=== PATIENT | male | born 1970 | race Caucasian/White ===

== ENCOUNTER 2021-01-27 12:52 | Emergency (ER) | payer BC, SELFPAY ==
[2021-01-27 12:55] VITALS: BP 159/103; PULSE 70; RESP 18; TEMP 36.7; O2SAT 98; BMI 41.0
--- NOTE | 2021-01-27 13:06 | ED_ITS ---
HPI - Weakness General: Chief complaint: Weakness Stated complaint: fatigue and dizziness Time Seen by Provider: 01/27/21 13:05 History of Present Illness: HPI Narrative: 50-year-old male presents emergency room complaining of generally feeling weak and sore the last several days. He has also some left lower leg redness with a little bit of drainage. He denies any fever sweats or chills. MD Complaint: generalized weakness Onset (ago): day(s) Duration: constant Location: generalized Migration: none Severity: mild Relieving factors: none Exacerbating factors: none Associated symptoms: Denies chest pain, chills, confusion, melena, decreased appetite, diaphoresis, dysuria, easy bruising, fever(s), headache(s), myalgias, nausea, rash, short of breath, syncope or vomiting Review of Systems Const: Denies: fever(s), chills or diaphoresis ENMT: Denies: throat pain, ear or mastoid pain, nasal discharge or nasal congestion Card: Denies: chest pain or syncope Resp: Denies: dyspnea, productive cough or non-productive cough GI: Denies: nausea, vomiting or melena : Denies: dysuria Skin/Breast: Denies: rash or pruritus Neuro: Denies: headache(s) or confusion Juan Manuel/Lymph: Denies: easy bruising Physical Exam Const: COMMON NORMALS: no acute distress GENERAL APPEARANCE: cooperative and comfortable ORIENTATION/CONSCIOUSNESS: Yes awake, Yes oriented to person, Yes oriented to place and Yes oriented to time HENMT: COMMON NORMALS: normocephalic, atraumatic and hearing grossly normal bilaterally HEAD & SCALP: normocephalic and atraumatic Neck/C-Spine: COMMON NORMALS: no JVD Resp: COMMON NORMALS: normal respiratory effort, No retractions, No use of accessory muscles and clear to auscultation bilaterally AUSCULTATION: clear to auscultation bilaterally Cardio: COMMON NORMALS: no JVD, regular rate, regular rhythm and No murmurs present (Cardio) RATE: regular rate RHYTHM: regular rhythm GI: COMMON NORMALS: Soft to palpation and No hepatosplenomegaly present AUSCULTATION: Yes normoactive bowel sounds PALPATION: Yes Soft to palpation, No Tenderness to palpation present (GI), No Guarding due to palpation present (GI) and Yes No hepatosplenomegaly present Extremity: NARRATIVE EXTREMITY EXAM: Erythema of the distal left leg anteriorly and medially there is some bullous formation no active drainage no fluctuance no open wounds no purulent drainage. Mildly tender lymphadenopathy in the left inguinal region Neuro: SENSORIUM/ORIENTATION: Yes oriented to person, Yes oriented to place and Yes oriented to time Skin: COMMON NORMALS: no rashes or lesions noted GENERAL SKIN EXAM: no rashes or lesions noted Course Vital Signs: Vital signs: Vital Signs Temperature 98.1 F 01/27/21 12:55 Pulse Rate 70 01/27/21 12:55 Respiratory Rate 18 01/27/21 12:55 Blood Pressure 159/103 01/27/21 12:55 Pulse Oximetry 98 01/27/21 12:55 MDM - Weakness MDM Narrative: Medical decision making narrative: Reviewed labs and imaging. We will go ahead and start on Bactrim DS 1 p.o. twice daily elevate leg mild moist heat 2-3 times a day return if has problems. Lab Data: Labs: Lab Results 01/27/21 01/27/21 01/27/21 Range/Units 13:50 13:50 14:15 WBC 7.6 (4.0-10.0) 10^3/ uL RBC 5.07 (4.1-5.3) 10^6/u L Hgb 15.7 (11.7-16.6) g/dL Hct 45.9 (42.0-52.0) % MCV 90.5 (80-94) fl MCH 31.0 (28.0-34.0) pg MCHC 34.2 (30.0-36.0) g/dL RDW 12.8 (12.1-15.1) % Plt Count 191 (130-400) 10^3/c mm MPV 11.1 H (7.4-10.4) fL Neut % (Auto) 64.7 % Lymph % (Auto) 22.1 % [place] % (Auto) 10.7 % Eos % (Auto) 0.9 % Baso % (Auto) 0.9 % Neut # (Auto) 4.93 (1.8-7.7) 10^3/u L Lymph # (Auto) 1.7 (0.8-4.8) 10^3/u L [place] # (Auto) 0.8 (0.2-0.9) 10^3/u L Eos # (Auto) 0.1 (0.0-0.8) 10^3/u L Baso # (Auto) 0.1 (0.0-0.1) 10^3/u L Nucleated RBC % (a uto) 0 % Nucleated RBCs # 0.0 /100WBC Sodium 136 (136-145) mmol/L Potassium 3.7 (3.5-5.1) mmol/L Chloride 98 (98-107) mmol/L Carbon Dioxide 25 (22-29) mmol/L Anion Gap 16.7 (5-19) BUN 10 (6-20) mg/dL Creatinine 0.6 L (0.7-1.2) mg/dL GFR Calculation 142.6 H (90-130) mL/min Glucose 88 (65-115) mg/dL Calculated Osmolal ity 280 L (285-295) mOsm/k g Calcium 8.9 (8.5-10.5) mg/dL Total Bilirubin 0.5 (0.15-1.2) mg/dL AST 21 (0-40) U/L ALT 35 (0-41) U/L Alkaline Phosphata se 99 (40-130) IU/L Creatine Kinase 54 (39-308) U/L Total Protein 7.8 (6.6-8.7) g/dL Albumin 4.4 (3.5-5.2) g/dL Globulin 3.4 (1.3-4.6) g/dL Lipase 55 (13-60) U/L Urine Color Yellow (Yellow) Urine Appearance Clear (CLEAR) Urine pH 6 (5-7) Ur Specific Gravit y 1.010 (1.005-1.030) Urine Protein Neg (Negative) Urine Glucose (UA) Norm (Normal) Urine Ketones Negative (Negative) Urine Blood Neg (Negative) Urine Nitrate Negative (Negative) Urine Bilirubin Neg (Negative) Urine Urobilinogen Neg (Negative) mg/dL Ur Leukocyte Josette ase Negative (Negative) Discharge Plan Discharge Patient Disposition: Home Clinical Impression: Cellulitis and abscess of left leg Condition: Stable Prescriptions: New Bactrim DS 800-160 mg tablet 1 tab PO BID 10 Days Qty: 20 RF: 0 No Action atorvastatin 40 mg tablet 20 mg PO DAILY RF: 0 clopidogrel 75 mg tablet 75 mg PO DAILY RF: 0 Aspir-81 81 mg Tablet,Delayed Release (Dr/Ec) 81 mg PO DAILY RF: 0 potassium 99 mg Tablet 198 mg PO DAILY RF: 0 metoprolol tartrate 50 mg tablet 50 mg PO BID RF: 0 omeprazole 20 mg capsule,delayed release(DR/EC) 20 mg PO BID RF: 0 furosemide 20 mg tablet 20 mg PO DAILY RF: 0 sertraline 50 mg tablet 50 mg PO DAILY RF: 0 Discharge Orders: Discharge ED (Routine); Ordered 01/27/21 Ordered By: Brock Sherwood Referrals: Anushka Ortez NP [Primary Care Provider] - Patient Instructions: Opioid Safety Activity Restrictions/Additional Instructions: Elevate leg is much as possible moist heat 3-4 times a day. Recheck with your primary care doctor within the next 3 to 5 days return to the ER if you have worsening symptoms. Coding Level of Care Code ED Green House Manager for Peter Saldivar Exam Detailed
--- NOTE | 2021-01-27 13:09 | XR_ITS ---
WS: [id number] Portable AP upright chest, 01/27/2021 Clinical Data: dyspnea/cough Comparison: Portable chest, 10/19/2015. Findings: No nodules, masses or effusions are seen. The heart is moderately enlarged. The pulmonary v ascularity is not increased. No pneumonia or pneumothorax is seen. Line and sternotomy sutures are pr esent. XR/XR chest 1V portable [id number] Impression: Cardiomegaly.
--- NOTE | 2021-01-27 13:09 | ECG_ITS ---
[facility] Test Date: 2021-01-27 Pat Name: Earl Mckeon Department: Room: Gender: Male Land Developer: : 1970 Requested By: Brock Cullen Order Number: [id number] Heath MD: Pita Moore M.D. Measurements Intervals [place] Rate: 69 P: 27 VT: 171 QRS: 28 QRSD: 120 T: 120 QT: 415 QTc: 446 Interpretive Statements SINUS RHYTHM INFERIOR MYOCARDIAL INFARCTION [40+ ms Q WAVE AND/OR ST/T ABNORMALITY IN II/aVF], PROBABLY OLD Compared to ECG 10/19/2015 09:47:35 No significant changes Electronically Signed On 01-29-2021 18:20:16 CDT by Pita Moore M.D. [email or web address]
[2021-01-27 14:01] LABS: Basophils # 0.1 10^3/uL (0.0-0.1); Basophils % 0.9 %; Eosinophils # 0.1 10^3/uL (0.0-0.8); Eosinophils % 0.9 %; Hematocrit 45.9 % (42.0-52.0); Hemoglobin 15.7 g/dL (11.7-16.6); Lymphocytes # 1.7 10^3/uL (0.8-4.8); Lymphocytes % 22.1 %; Mean Corpuscular HGB Conc 34.2 g/dL (30.0-36.0); Mean Corpuscular Volume 90.5 fl (80-94); Mean Platelet Volume 11.1 fL (7.4-10.4); Monocytes # 0.8 10^3/uL (0.2-0.9); Monocytes % 10.7 %; Neutrophils # 4.93 10^3/uL (1.8-7.7); Neutrophils % 64.7 %; Nucleated Red Blood Cells % 0 %; Platelet Count 191 10^3/cmm (130-400); Red Blood Count 5.07 10^6/uL (4.1-5.3); Red Cell Distribution Width 12.8 % (12.1-15.1); White Blood Count 7.6 10^3/uL (4.0-10.0)
[2021-01-27 14:26] LABS: Add Urine Microscopic? NO; Charge for UA Resulting for Rev
[2021-01-27 14:30] LABS: Bilirubin Urine Neg (Negative); Blood Urine Neg (Negative); Glucose Urine UA Norm (Normal); Ketones Urine Negative (Negative); Leukocyte Esterase Urine Negative (Negative); Nitrate Urine Negative (Negative); Protein Urine Neg (Negative); Urine Appearance Clear (CLEAR); Urine Color Yellow (Yellow); Urobilinogen Urine Neg (Negative); pH Urine 6 (5-7)
[2021-01-27 15:06] LABS: Alanine Aminotransferase 35 U/L (0-41); Albumin Level 4.4 g/dL (3.5-5.2); Alkaline Phosphatase 99 IU/L (40-130); Anion Gap 16.7 (5-19); Aspartate Amino Transferase 21 U/L (0-40); Blood Urea Nitrogen 10 mg/dL (6-20); Calcium 8.9 mg/dL (8.5-10.5); Carbon Dioxide 25 mmol/L (22-29); Chloride 98 mmol/L (98-107); Creatine Phosphokinase 54 U/L (39-308); Globulin 3.4 g/dL (1.3-4.6); Glomerular Filtration Rate 142.6 mL/min (90-130); Glucose 88 mg/dL (65-115); Lipase 55 U/L (13-60); Osmolality Calculated 280 mOsm/kg (285-295); Potassium 3.7 mmol/L (3.5-5.1); Sodium 136 mmol/L (136-145); Total Bilirubin 0.5 mg/dL (0.15-1.2); Total Protein 7.8 g/dL (6.6-8.7)
== END 2021-01-27 16:03 | disposition home or self-care (01) ==
PROVIDERS: Emergency Provider Family Medicine; PCP Nurse Practitioner Family
DX: L03.116 Cellulitis of left lower limb (principal); L02.416 Cutaneous abscess of left lower limb; Z79.02 Long term (current) use of antithrombotics/antiplatelets; Z79.82 Long term (current) use of aspirin
CPT/HCPCS: 71045; 80053; 81003; 82550; 83690; 85025; 93005; 99283

== ENCOUNTER → 2021-08-12 10:45 | Outpatient (BNVA) | payer BC, SELFPAY | PROVIDERS: PCP Nurse Practitioner Family; Visit Provider Internal Medicine | DX: Z20.822 Contact with and (suspected) exposure to COVID-19 (principal); Z01.812 Encounter for preprocedural laboratory examination; I10 Essential (primary) hypertension | CPT/HCPCS: 80048; 87635 ==

== ENCOUNTER 2021-08-16 07:58 | Observation (INO) | payer BC, SELFPAY ==
[2021-08-12 10:38] LABS: Basophils # 0.1 10^3/uL (0.0-0.1); Basophils % 0.8 %; Eosinophils # 0.1 10^3/uL (0.0-0.8); Hematocrit 46.7 % (42.0-52.0); Hemoglobin 15.8 g/dL (11.7-16.6); Lymphocytes # 1.6 10^3/uL (0.8-4.8); Lymphocytes % 21.5 %; Mean Corpuscular HGB Conc 33.8 g/dL (30.0-36.0); Mean Corpuscular Hemoglobin 30.6 pg (28.0-34.0); Mean Corpuscular Volume 90.3 fl (80-94); Monocytes # 0.5 10^3/uL (0.2-0.9); Monocytes % 6.8 %; Neutrophils # 5.08 10^3/uL (1.8-7.7); Neutrophils % 69.2 %; Nucleated Red Blood Cells % 0 %; Platelet Count 191 10^3/cmm (130-400); Red Blood Count 5.17 10^6/uL (4.1-5.3); Red Cell Distribution Width 12.7 % (12.1-15.1); White Blood Count 7.3 10^3/uL (4.0-10.0)
[2021-08-12 10:49] LABS: INR 0.95 (0.83-1.21)
[2021-08-16] VITALS (29 sets, daily range): BP systolic 105–146; BP diastolic 65–101; PULSE 58–73; RESP 5–32; TEMP 36.3–36.8; O2SAT 95–98; BMI 50.4
--- NOTE | 2021-08-16 06:00 | XACV_ITS ---
Exam Room: [facility] Ht: 178 cm Wt: 133 kg BSA: 2.63 m2 Gender: Male : 1970 Any Known Allergies: No known allergies Exam Priority: Routine Procedure(s): Procedure Description: Diagnostic procedure Procedure Description: Aortogram Procedure Description: Venous Graft Catheterization Procedure Description: RAMIREZ Graft Catheterization Procedure Description: Coronary Angiography Diagnostic Cath Status: Elective Diagnostic Findings * Left main:Patent LAD: Has patent stents. No significant disease. Left circumflex artery: Has diffuse mild luminal irregularities. No significant stenosis RCA: Patent. Prior stents are patent. SVG to RCA: Occluded SVG to OM: Occluded RAMIREZ to LAD: Patent however is atretic in the distal segment.. * Coronary angiography shows right dominance. Conclusions 1. Left main:Patent LAD: Has patent stents. No significant disease. Left circumflex artery: Has diffuse mild luminal irregularities. No significant stenosis RCA: Patent. Prior stents are patent. SVG to RCA: Occluded SVG to OM: Occluded RAMIREZ to LAD: Patent however is atretic in the distal segment.. 2. Patient has prior CABG. Recommendations * Aggressive risk factor modification. * Outpatient cardiology follow up in 4 weeks. Interventional RX Recommendation: medical therapy and/or counseling Diagnostic RX Recommendation: medical therapy and/or counseling Pressures Phase:Rest AO : 113 / 72 ( 89 ) @ 8:00:00 AM 100 / 68 ( 80 ) @ 8:30:00 AM Clinical Evaluation EBL: 5mL-10mL Procedural Details Procedure Consent Obtained. Pre-Procedure Time Out. Identified patient by full name and date of as verbalized by the patient/guarantor. Does the consent match the physician's order: Yes. Accurate & Complete Informed Consent: Yes. Inpatient/Outpatient History & Physical on Chart: Yes. If H&P is completed, is and addenduem needed: No; If yes, is the addendum complete: N/A. Visualize and Verify Site with Patient/Guarantor: N/A. Relevant Radiology Images available: N/A. Pre-op teaching completed and patient verbalized understanding. The risks, benefits, and alternatives of sedation and/or procedure were discussed by physician. The patient agrees to continue. Procedure started. [facility] Clinical Fraility Score: 3: Managing Well. Administrative Services Specialist Indications: Worsening Angina. Chest Pain Symptom Assessment: Typical Angina Symptoms. Cardiovascular Instability: No. Correct patient, site and procedure confirmed by cath team. PERRLA. Strong, equal hand unemployment insurance director bilaterally. Lungs clear x 5 lobes. IV Site on Arrival: 20 gauge in the left anticubital. IV Fluids: 0.9% NaCl at KVO. 0 mL infused prior to electrical laboratory technician. Pre Procedural Pulses: bilateral dorsalis pedis was Doppled. Pre Procedural Pulses: bilateral posterior tibial was Doppled. Pre Procedural Pulses: bilateral radial was 2+. Oxygen started at 2liters/min via nasal canula. bilateral groins was prepped with chloroprep then draped in the usual sterile fashion. Baseline sample Acquired. HR: 64 BPM. Physician arrived. Equipment: 6F - Femoral. Cardiac Cath Pack. ACIST Manifold Kit Model BT 2000. Heparinized Saline (2 units/mL), 1000 mL bag. Kit, Micropuncture. Physician scrubbed in. Immediate Pre-Procedure Time Out. Correct Patient: Yes; Correct Procedure: Yes; Correct Site: Yes; Correct Patient Position: Yes; Correct Supplies: Yes; Dried Flammable Prep: Yes; Blood Products Available: N/A;. Lidocaine 1% infiltrated to the right groin. Arterial access obtained with micropuncture set. A 5 [place] JL4 catheter in over wire. Multiple views taken of left coronary artery. Catheter out. A 5 [place] JR4 catheter in over wire. Multiple views taken of right coronary artery. Catheter out. A 5 [place] IM catheter in over wire. RAMIREZ to LAD visualized. Catheter out. A 5 [place] JR4 catheter in over wire. Catheter out. A 5 [place] AL1 catheter in over wire. Catheter out. A 5 [place] Angled Pig catheter in over wire. Aortogram performed in RAMESH @ 10 mL/second for a total of 30 mL. Catheter out. A 5 [place] JR4 catheter in over wire. Catheter out. SVG to circ occluded. RCA known occluded. A Right femoral angiogram was performed to determine safe placement of closure device. Lidocaine 1% infiltrated to the right groin. A Angio-Seal VIP (St. Aric) was successful obtaining hemostatsis at the Right Femoral artery insertion site. Angioseal placed without complications. No signs or symptoms of hematoma noted. Sterile dressing applied per usual sterile fashion. Post Procedure: Pulses reassessed and unchanged. PERRLA. Strong, equal hand unemployment insurance director bilaterally. No VTE prophylaxis required. Medication's Wasted: Lidocaine 1% = 10 mL. Medication's Wasted: Nitro = 50 mg. Medication's Wasted: Heparin = 1000 units. Medication's Wasted: Other = versed 1 mg. Medication's Wasted: Other = fentanyl 50 mcg. Total IV fluids: 40 mL. Contrast type used: Visipaque 320 mgI/mL, 500 mL bottle. Post-op diagnosis: severe multi vessel CAD. Complications: none. Estimated blood loss: 5mL-10mL. Responsiveness - Normal response to verbal stimuli; alert and oriented, PERRLA. Airway - Unaffected, no intervention required; spontaneous ventilation. Circulation: W/N/L, pulses unchanged. Nausea/Vomiting: No. Procedure completed. Patient transferred by bed to 1st floor. Vital chart was stopped. Access Site Site: Right Femoral artery Sheath Size: 6 Fr Hemostasis Method: Angio-Seal VIP (St. Aric) Hemostasis Success: Successful Procedure Medications Start: 7:46 AM Stop: 7:46 AM Medication: Versed Amount: 1 mg Route: I.V. Start: 7:46 AM Stop: 7:46 AM Medication: Fentanyl Amount: 50 mcg Route: I.V. Start: 7:52 AM Stop: 7:52 AM Medication: Versed Amount: 1 mg Route: I.V. Start: 7:52 AM Stop: 7:52 AM Medication: Fentanyl Amount: 50 mcg Route: I.V. I, the attending physician, have reviewed and verified all procedure medications. Yes, all medications given per verbal order History/Risk Factors Hypertension: Yes Dyslipidemia: Yes Peripheral Arterial Disease (PAD): No Myocardial Infarction (OR): No Obesity: Yes Renal Disease: No Tobacco Use: Former Prior Interventions PCI: Yes CABG: Yes Valve Surgery: No Date of PCI: 06/30/2014 Report Signatures Finalized by Albino Cespedes MD on 08/29/2021 07:26 PM
[2021-08-16] MEDS: diphenhydrAMINE 50 mg Capsule PO (06:30)
--- NOTE | 2021-08-16 07:45 | W.PM.OPSUD ---
Surgery/Procedure H&P Update DATE OF PROCEDURE: August 16, 2021 DATE H&P PERFORMED: 07/26/21 H&P UPDATE INFORMATION: I have reviewed H&P completed within last 30 days, I have examined patient prior to procedure and No changes to prior documentation PREOP DIAGNOSIS: Worsening angina PRIMARY INDICATION FOR PROCEDURE: Worsening angina PLANNED PROCEDURE: Operation Date: 08/16/21 07:00 Proposed Procedures p Cardiac Catheterization(Left) - Albino Cespedes M.D Possible percutaneous coronary intervention PATIENT REASSESSED PRIOR TO SEDATION, WITH NO CHANGE NOTED: Yes PHYSICAL EXAM: alert, oriented x 3, clear to auscultation bilaterally and regular rate & rhythm AIRWAY EVAL/ANESTHESIA PLAN: ASA III, Monitored Anesthesia, Local Anesthesia, Risks, benefits & alternatives of sedation and/or procedure discussed and Patient agrees to continue as planned
[2021-08-16] MEDS: clopidogrel 75 mg Tablet PO (10:28)
[2021-08-16] MEDS: sertraline 50 mg Tablet PO (10:28)
[2021-08-16] MEDS: atorvastatin 40 mg Tablet PO (10:28)
[2021-08-16] MEDS: pantoprazole DR 40 mg Tablet PO (10:28)
[2021-08-16] MEDS: metoprolol tartrate 50 mg Tablet PO (10:30)
--- NOTE | 2021-08-16 11:04 | PC.CHAP ---
Pastoral Care Encounter/Spiritual Assessment Type of Contact [] Declined laser beam trim operator visit [] Patient/Family/Request visit [] Outpatient visit [] Follow-up visit [] Physician referral [] Code/Alert [x] Routine visit [] Staff referral [] Actively dying [] Patient sleeping [x] Family support [] [] Out of room [] Palliative care [] [] Receiving care in room [] Pre-surgical visit [] Trauma [] Long length of stay [] ICU visit [] Other: Relational/Emotional Strength [] Patient feels connected with others/family/visitors/staff [] Distress [] Loneliness/isolation [] Abandonment Spirituality of Patient [] Person of Noemí [] Attends Samaritan of their Noemí [] Believes in Prayer [] Reads Bible or Sabianist materials [] There are Spiritual issues to be addressed Fishing Boat Mate Interventions [x] Prayer [x] Active listening [x] Non-anxious presence [x] Spiritual/emotional support [] Crisis/trauma care [] Spiritual counseling [] Bereavement support [] Provided bereavement packet [] Provided Bible/devotional materials [] Provided toy/stuffed animal, coloring book to patient or family member [] Provided Communion [] Anointing/[place] [] Salvation [x] Completed spiritual assessment [] Other: Impact on Illness or Injury [] Angry [] Fearful [] Anxious [] Often cries [] Exhaustion [] Unable to work [] Unable to attend confucianist [] Unable to walk/stand [] Unable to read [] Unable to drive [] Unable to eat/drink [] Unable to sleep [] Unable to be with family [] Patient intubated [] Other: Summary didnt sleep well... resting Time spent with patient 5 min
--- NOTE | 2021-08-16 12:42 | PC.NURSE ---
Patient ate 100% of lunch fully independent, and drank 120ml of juice.
--- NOTE | 2021-08-16 15:25 | PC.NURSE ---
Discharge Note Patient discharged to home via private vehicle accompanied by spouse. All lines removed. Dressing to right groin over incision site intact, no drainage or hematoma noted. Patient denies pain or discomfort, vitals stable. Discharge instructions reviewed with patient and/or lead generation representative. Patient verbalized understanding of all teaching. Mobile pharmacy medications and/or prescriptions provided. Belongings/home medications returned.
== END 2021-08-16 15:34 | disposition home or self-care (01) ==
LOC: CSU 07:58
PROVIDERS: Admitting Provider Internal Medicine; PCP Nurse Practitioner Family; Visit Provider Internal Medicine
DX: I25.10 Atherosclerotic heart disease of native coronary artery without angina pectoris (principal); I10 Essential (primary) hypertension; E78.5 Hyperlipidemia, unspecified; E66.9 Obesity, unspecified; Z68.43 Body mass index [BMI] 50.0-59.9, adult; Z87.891 Personal history of nicotine dependence; Z95.1 Presence of aortocoronary bypass graft; Z79.82 Long term (current) use of aspirin; Z82.49 Family history of ischemic heart disease and other diseases of the circulatory system; Z82.3 Family history of stroke
CPT/HCPCS: 36415; 85025; 85610; 93455; C1760; C1769; C1887; C1894; G0378; J1644; J2250; J3010; J3490; J7030; Q0163; Q9967

== ENCOUNTER → 2021-08-23 10:38 | Outpatient (BNVA) | payer BC, SELFPAY | PROVIDERS: PCP Nurse Practitioner Family; Visit Provider Nurse Practitioner Family | DX: I10 Essential (primary) hypertension (principal); I25.10 Atherosclerotic heart disease of native coronary artery without angina pectoris | CPT/HCPCS: 80048 ==

== ENCOUNTER 2021-12-27 11:25 | Outpatient (CLI) | payer BC, SELFPAY ==
--- NOTE | 2021-12-27 11:44 | XR_ITS ---
WS: [id number] XR lumbar spine 2-3V* [id number] REASON FOR EXAM: DORSALGIA FINDINGS: Mild rotatory scoliosis convex left. Mild straightening of the normal lordosis. Mild wedge-shaped compression deformities of L1 and L2 which appear chronic with associated moderate osteophyte formation and disc space narrowing. Mild narrowing of the intervertebral disc space at L2-L3 and L5-S1. Large osteophyte of the superior endplate of L3. No significant spondylolisthesis. XR/XR lumbar spine 2-3V* [id number] IMPRESSION: Degenerative disc disease of the lumbar spine with no acute abnormality identif ied.
--- NOTE | 2021-12-27 11:44 | XR_ITS ---
WS: [id number] XR thoracic spine 2V [id number] REASON FOR EXAM: MID BACK PAIN/DORSALGIA FINDINGS: There is no significant dorsal kyphosis or scoliosis. There are chronic appearing endplate compression deformities of T8 and T9 and T12 associated with lar ge osteophytes. No other significant vertebral body abnormality is noted. There is narrowing of the intervertebral disc spaces from T8 to T12. XR/XR thoracic spine 2V [id number] IMPRESSION: Degenerative changes with no acute abnormality identified.
== END 2021-12-27 11:26 | disposition home or self-care (01) ==
PROVIDERS: PCP Nurse Practitioner Family; Visit Provider Nurse Practitioner Family
DX: M51.36 Other intervertebral disc degeneration, lumbar region (principal)
CPT/HCPCS: 72070; 72100

== ENCOUNTER 2022-04-08 05:09 | Emergency (ER) | payer BC, SELFPAY ==
[2022-04-08 05:13] VITALS: PULSE 73; RESP 18; TEMP 36.8; O2SAT 98; BMI 42.5
[2022-04-08 05:18] VITALS: BP 133/79; PULSE 73; RESP 18; TEMP 36.8; O2SAT 98
--- NOTE | 2022-04-08 05:20 | ED_ITS ---
Documented by User: Emmanuelle Scott MD 04/11/22 18:51 HPI - Nausea/Vomiting/Diarrhea General: Chief complaint: Nausea/Vomiting/Diarrhea Stated complaint: ABD Pain\Diahrea\Dehydration Time Seen by Provider: 04/08/22 05:14 Source: patient Mode of arrival: ambulatory Limitations: no limitations History of Present Illness: 52-year-old male states he has had diarrhea over the last week. He states he has multiple watery stools states he has had no worsening improving factors. He denies any fever has had some slight nausea denies any vomiting he has had abdominal cramping he rates it 1 out of 10. He denies fevers. Associated nausea: Yes Associated symtoms: Reports nausea; Denies chest pain, dysuria or headache(s) Review of Systems Const: Denies: fever(s), chills, body aches or change in appetite Eyes: Denies: blurry vision or eye discomfort ENMT: Denies: throat pain or dental pain Card: Denies: chest pain Resp: Denies: dyspnea GI: Reports: abdominal pain, nausea and diarrhea : Denies: dysuria Musc: Denies: neck pain or back pain Skin/Breast: Denies: rash Neuro: Denies: headache(s) Psych: Denies: depression Juan Manuel/Lymph: Denies: easy bruising All/Imm: Denies: urticaria PFSH ED PFSH: Medical History CAD (coronary artery disease) HLD (hyperlipidemia) HTN (hypertension) Surgical History H/O heart artery stent History of open heart surgery S/P right coronary artery (RCA) stent placement Family History Father Hypertension Grandmother Stroke Social History Smoking and tobacco status: former smoker Alcohol intake: current Alcohol intake frequency: 0-2 Drinks per Day Physical Exam Const: COMMON NORMALS: no acute distress, patient oriented x3 and healthy appearing HENMT: COMMON NORMALS: normocephalic and atraumatic HEAD & SCALP: normocephalic and atraumatic Eye: COMMON NORMALS: Equal, round and reactive pupils present and EOMs intact bilaterally PUPIL: Yes Equal, round and reactive pupils present Neck/C-Spine: COMMON NORMALS: full ROM and supple Chest: COMMONS NORMALS: normal inspection of the chest and normal palpation of entire chest wall Resp: COMMON NORMALS: normal respiratory effort, No retractions, No use of accessory muscles and clear to auscultation bilaterally AUSCULTATION: clear to auscultation bilaterally Cardio: COMMON NORMALS: regular rate, regular rhythm and No murmurs present (Cardio) RATE: regular rate RHYTHM: regular rhythm GI: COMMON NORMALS: Normal to inspection, nondistended, normoactive bowel sounds present, Soft to palpation, non-tender and no masses PALPATION: Yes Soft to palpation Extremity: COMMON NORMALS: normal to inspection and full ROM Neuro: COMMON NORMALS: patient oriented x3, moves all extremities and no focal motor deficits Psych: COMMON NORMALS: mental status grossly normal, Normal thought process present and cooperative THOUGHT PROCESS: Normal thought process present Skin: COMMON NORMALS: no rashes or lesions noted and no wounds GENERAL SKIN EXAM: no rashes or lesions noted Course Vital Signs: Vital signs: Vital Signs Temperature 98.3 F 04/08/22 05:18 Pulse Rate 69 04/08/22 07:58 Respiratory Rate 18 04/08/22 07:58 Blood Pressure 137/70 04/08/22 07:58 Pulse Oximetry 99 04/08/22 07:58 Oxygen Delivery Me thod 04/08/22 07:57 MDM - Nausea/Vomiting/Diarrhea Medical Decision Making Patient presents here with diarrhea, nausea and feelings of dehydration patient care turned over to Dr. Mayo pending labs. Patient's been well-appearing here abdominal exam is benign Lab Data : 04/08/22 05:32 04/08/22 05:32 Laboratory Results WBC 9.4 10^3/uL (4.0-10.0) 04/08/22 05:32 RBC 5.40 10^6/uL (4.1-5.3) H 04/08/22 05:32 Hgb 16.5 g/dL (11.7-16.6) 04/08/22 05:32 Hct 48.4 % (42.0-52.0) 04/08/22 05:32 MCV 89.6 fl (80-94) 04/08/22 05:32 MCH 30.6 pg (28.0-34.0) 04/08/22 05:32 MCHC 34.1 g/dL (30.0-36.0) 04/08/22 05:32 RDW 12.7 % (12.1-15.1) 04/08/22 05:32 Plt Count 204 10^3/cmm (130-400) 04/08/22 05:32 MPV 10.7 fL (7.4-10.4) H 04/08/22 05:32 Neut % (Auto) 68.4 % 04/08/22 05:32 Lymph % (Auto) 18.1 % 04/08/22 05:32 Bledsoe % (Auto) 10.7 % 04/08/22 05:32 Eos % (Auto) 1.6 % 04/08/22 05:32 Baso % (Auto) 0.6 % 04/08/22 05:32 Neut # (Auto) 6.40 10^3/uL (1.8-7.7) 04/08/22 05:32 Lymph # (Auto) 1.7 10^3/uL (0.8-4.8) 04/08/22 05:32 Bledsoe # (Auto) 1.0 10^3/uL (0.2-0.9) H 04/08/22 05:32 Eos # (Auto) 0.2 10^3/uL (0.0-0.8) 04/08/22 05:32 Baso # (Auto) 0.1 10^3/uL (0.0-0.1) 04/08/22 05:32 Nucleated RBC % (auto) 0 % 04/08/22 05:32 Nucleated RBCs # 0.0 /100WBC 04/08/22 05:32 Sodium 136 mmol/L (136-145) 04/08/22 05:32 Potassium 4.1 mmol/L (3.5-5.1) 04/08/22 05:32 Chloride 99 mmol/L (98-107) 04/08/22 05:32 Carbon Dioxide 25 mmol/L (22-29) 04/08/22 05:32 Anion Gap 16.1 (5-19) 04/08/22 05:32 BUN 12 mg/dL (6-20) 04/08/22 05:32 Creatinine 0.6 mg/dL (0.7-1.2) L 04/08/22 05:32 GFR Calculation 141.5 mL/min (90-130) H 04/08/22 05:32 Glucose 104 mg/dL (65-115) 04/08/22 05:32 Calculated Osmolality 282 mOsm/kg (285-295) L 04/08/22 05:32 Calcium 9.3 mg/dL (8.5-10.5) 04/08/22 05:32 Total Bilirubin 0.5 mg/dL (0.15-1.2) 04/08/22 05:32 AST 26 U/L (0-40) 04/08/22 05:32 ALT 41 U/L (0-41) 04/08/22 05:32 Alkaline Phosphatase 114 U/L (40-130) 04/08/22 05:32 Total Protein 7.3 g/dL (6.6-8.7) 04/08/22 05:32 Albumin 4.5 g/dL (3.5-5.2) 04/08/22 05:32 Globulin 2.8 g/dL (1.3-4.6) 04/08/22 05:32 Lipase 86 U/L (13-60) H 04/08/22 05:32 Discharge Plan Discharge Patient Disposition: Home Clinical Impression: Diarrhea Condition: Stable Prescriptions: No Action nitroglycerin 0.4 mg tablet, sublingual 0.4 mg sublingual Q5M PRN (Reason: Chest Pain) Rx Instructions: do not exceed 3 doses per episode metoprolol tartrate 50 mg tablet 50 mg PO BID Qty: 120 2RF omeprazole 20 mg capsule,delayed release(DR/EC) 20 mg PO BID sertraline 50 mg tablet 75 mg PO DAILY potassium gluconate 595 mg (99 mg) Tablet 1,190 mg PO QAM atorvastatin 40 mg tablet 40 mg PO QPM clopidogrel 75 mg tablet 75 mg PO QAM aspirin 81 mg tablet,delayed release (DR/EC) 81 mg PO QPM lisinopril 10 mg tablet 10 mg PO BEDTIME furosemide 20 mg tablet 20 mg PO DAILY Discharge Orders: Discharge ED (Routine); Ordered 04/08/22 Ordered By: Brock Sherwood Referrals: Anushka Ortez NP [Primary Care Provider] - Discharge Diet: Clear Liquid Discharge Activity: Increase activity as tolerated Patient Instructions: Opioid Safety, Pain Management Activity Restrictions/Additional Instructions: 2 cultures were done today in the emergency room and will be contacted with the results. Recommend clear liquid diet for 24 to 48 hours and advance as tolerated. If your symptoms persist follow-up with your primary care doctor for further evaluation. Sign Out Sign Out Data: Patient Sign Out occurred on 04/08/22 at 06:23. Patient's care was discussed, and care was transferred from to Brock Sherwood DO. Coding Level of Care Code ED Retail Sales Specialist for Chg Fwd Exam Comprehensive Documented by User: Brock Sherwood DO 04/20/22 06:17 HPI - Nausea/Vomiting/Diarrhea General: Chief complaint: Nausea/Vomiting/Diarrhea Stated complaint: ABD Pain\Diahrea\Dehydration Time Seen by Provider: 04/08/22 05:14 PFSH ED PFSH: Medical History CAD (coronary artery disease) HLD (hyperlipidemia) HTN (hypertension) Surgical History H/O heart artery stent History of open heart surgery S/P right coronary artery (RCA) stent placement Family History Father Hypertension Grandmother Stroke Social History Smoking and tobacco status: former smoker Alcohol intake: current Alcohol intake frequency: 0-2 Drinks per Day Course Vital Signs: Vital signs: Vital Signs Temperature 98.3 F 04/08/22 05:18 Pulse Rate 69 04/08/22 07:58 Respiratory Rate 18 04/08/22 07:58 Blood Pressure 137/70 04/08/22 07:58 Pulse Oximetry 99 04/08/22 07:58 Oxygen Delivery Me thod 10/28/22 07:57 MDM - Nausea/Vomiting/Diarrhea Medical Decision Making Patient presents here with diarrhea, nausea and feelings of dehydration patient care turned over to Dr. Mayo pending labs. Patient's been well-appearing here abdominal exam is benign Care assumed at change of shift. Labs reviewed. Patient is feeling better. Repeat abdominal exam is benign. Discharge patient home clear liquid diet follow-up with primary care return if worsens. Medical Records I reviewed the patient's medical records. Lab Data I reviewed the patient's lab results. : 04/08/22 05:32 04/08/22 05:32 Laboratory Results WBC 9.4 10^3/uL (4.0-10.0) 04/08/22 05:32 RBC 5.40 10^6/uL (4.1-5.3) H 04/08/22 05:32 Hgb 16.5 g/dL (11.7-16.6) 04/08/22 05:32 Hct 48.4 % (42.0-52.0) 04/08/22 05:32 MCV 89.6 fl (80-94) 04/08/22 05:32 MCH 30.6 pg (28.0-34.0) 04/08/22 05:32 MCHC 34.1 g/dL (30.0-36.0) 04/08/22 05:32 RDW 12.7 % (12.1-15.1) 04/08/22 05:32 Plt Count 204 10^3/cmm (130-400) 04/08/22 05:32 MPV 10.7 fL (7.4-10.4) H 04/08/22 05:32 Neut % (Auto) 68.4 % 04/08/22 05:32 Lymph % (Auto) 18.1 % 04/08/22 05:32 Bledsoe % (Auto) 10.7 % 04/08/22 05:32 Eos % (Auto) 1.6 % 04/08/22 05:32 Baso % (Auto) 0.6 % 04/08/22 05:32 Neut # (Auto) 6.40 10^3/uL (1.8-7.7) 04/08/22 05:32 Lymph # (Auto) 1.7 10^3/uL (0.8-4.8) 04/08/22 05:32 Bledsoe # (Auto) 1.0 10^3/uL (0.2-0.9) H 04/08/22 05:32 Eos # (Auto) 0.2 10^3/uL (0.0-0.8) 04/08/22 05:32 Baso # (Auto) 0.1 10^3/uL (0.0-0.1) 04/08/22 05:32 Nucleated RBC % (auto) 0 % 04/08/22 05:32 Nucleated RBCs # 0.0 /100WBC 04/08/22 05:32 Sodium 136 mmol/L (136-145) 04/08/22 05:32 Potassium 4.1 mmol/L (3.5-5.1) 04/08/22 05:32 Chloride 99 mmol/L (98-107) 04/08/22 05:32 Carbon Dioxide 25 mmol/L (22-29) 04/08/22 05:32 Anion Gap 16.1 (5-19) 04/08/22 05:32 BUN 12 mg/dL (6-20) 04/08/22 05:32 Creatinine 0.6 mg/dL (0.7-1.2) L 04/08/22 05:32 GFR Calculation 141.5 mL/min (90-130) H 04/08/22 05:32 Glucose 104 mg/dL (65-115) 04/08/22 05:32 Calculated Osmolality 282 mOsm/kg (285-295) L 04/08/22 05:32 Calcium 9.3 mg/dL (8.5-10.5) 04/08/22 05:32 Total Bilirubin 0.5 mg/dL (0.15-1.2) 04/08/22 05:32 AST 26 U/L (0-40) 04/08/22 05:32 ALT 41 U/L (0-41) 04/08/22 05:32 Alkaline Phosphatase 114 U/L (40-130) 04/08/22 05:32 Total Protein 7.3 g/dL (6.6-8.7) 04/08/22 05:32 Albumin 4.5 g/dL (3.5-5.2) 04/08/22 05:32 Globulin 2.8 g/dL (1.3-4.6) 04/08/22 05:32 Lipase 86 U/L (13-60) H 04/08/22 05:32 Discharge Plan Discharge Patient Disposition: Home Clinical Impression: Diarrhea Condition: Stable Prescriptions: No Action nitroglycerin 0.4 mg tablet, sublingual 0.4 mg sublingual Q5M PRN (Reason: Chest Pain) Rx Instructions: do not exceed 3 doses per episode metoprolol tartrate 50 mg tablet 50 mg PO BID Qty: 120 2RF omeprazole 20 mg capsule,delayed release(DR/EC) 20 mg PO BID sertraline 50 mg tablet 75 mg PO DAILY potassium gluconate 595 mg (99 mg) Tablet 1,190 mg PO QAM atorvastatin 40 mg tablet 40 mg PO QPM clopidogrel 75 mg tablet 75 mg PO QAM aspirin 81 mg tablet,delayed release (DR/EC) 81 mg PO QPM lisinopril 10 mg tablet 10 mg PO BEDTIME furosemide 20 mg tablet 20 mg PO DAILY Discharge Orders: Discharge ED (Routine); Ordered 04/08/22 Ordered By: Brock Sherwood Referrals: Anushka Ortez NP [Primary Care Provider] - Discharge Diet: Clear Liquid Discharge Activity: Increase activity as tolerated Patient Instructions: Opioid Safety, Pain Management Activity Restrictions/Additional Instructions: 2 cultures were done today in the emergency room and will be contacted with the results. Recommend clear liquid diet for 24 to 48 hours and advance as tolerated. If your symptoms persist follow-up with your primary care doctor for further evaluation. Sign Out Sign Out Data: Patient Sign Out occurred on 04/08/22 at 06:23. Patient's care was discussed, and care was transferred from to Brock Sherwood DO. Coding Level of Care Code ED Retail Sales Specialist for Chg Fwd Exam Comprehensive
[2022-04-08 05:37] LABS: Basophils # 0.1 10^3/uL (0.0-0.1); Basophils % 0.6 %; Eosinophils # 0.2 10^3/uL (0.0-0.8); Eosinophils % 1.6 %; Hematocrit 48.4 % (42.0-52.0); Hemoglobin 16.5 g/dL (11.7-16.6); Lymphocytes # 1.7 10^3/uL (0.8-4.8); Lymphocytes % 18.1 %; Mean Corpuscular HGB Conc 34.1 g/dL (30.0-36.0); Mean Corpuscular Hemoglobin 30.6 pg (28.0-34.0); Mean Corpuscular Volume 89.6 fl (80-94); Mean Platelet Volume 10.7 fL (7.4-10.4); Monocytes % 10.7 %; Neutrophils % 68.4 %; Nucleated Red Blood Cells % 0 %; Platelet Count 204 10^3/cmm (130-400); Red Cell Distribution Width 12.7 % (12.1-15.1); White Blood Count 9.4 10^3/uL (4.0-10.0)
[2022-04-08] MEDS: ondansetron 2 mg/ML SDV 2 mL 4 MG IVP (05:42)
[2022-04-08] MEDS: diphenoxylate/atropine Tablet 2 TAB PO (05:42)
[2022-04-08] MEDS: sodium chloride 0.9% 1,000 ML 999 ML IV (05:42)
[2022-04-08 06:20] VITALS: BP 135/72; PULSE 75; RESP 16; O2SAT 99
[2022-04-08 06:32] LABS: Alanine Aminotransferase 41 U/L (0-41); Albumin Level 4.5 g/dL (3.5-5.2); Alkaline Phosphatase 114 U/L (40-130); Aspartate Amino Transferase 26 U/L (0-40); Blood Urea Nitrogen 12 mg/dL (6-20); Calcium 9.3 mg/dL (8.5-10.5); Carbon Dioxide 25 mmol/L (22-29); Chloride 99 mmol/L (98-107); Globulin 2.8 g/dL (1.3-4.6); Glomerular Filtration Rate 141.5 mL/min (90-130); Glucose 104 mg/dL (65-115); Lipase 86 U/L (13-60); Osmolality Calculated 282 mOsm/kg (285-295); Sodium 136 mmol/L (136-145); Total Bilirubin 0.5 mg/dL (0.15-1.2); Total Protein 7.3 g/dL (6.6-8.7)
[2022-04-08 06:45] LABS: Anion Gap 16.1 (5-19); Potassium 4.1 mmol/L (3.5-5.1)
[2022-04-08 07:57] VITALS: BP 137/70; PULSE 69; RESP 18; O2SAT 99
[2022-04-08 07:58] VITALS: BP 137/70; PULSE 69; RESP 18; O2SAT 99
== END 2022-04-08 07:59 | disposition home or self-care (01) ==
PROVIDERS: Emergency Medicine; Emergency Provider Family Medicine; PCP Nurse Practitioner Family
DX: R19.7 Diarrhea, unspecified (principal); Z79.02 Long term (current) use of antithrombotics/antiplatelets; Z79.82 Long term (current) use of aspirin; I25.10 Atherosclerotic heart disease of native coronary artery without angina pectoris; E78.5 Hyperlipidemia, unspecified; I10 Essential (primary) hypertension; Z87.891 Personal history of nicotine dependence
CPT/HCPCS: 80053; 83690; 85025; 87493; 87506; 96374; 99284; J2405; J7030

== ENCOUNTER 2022-09-27 06:51 | Outpatient (CLI) | payer BC, SELFPAY ==
[2022-09-27 07:11] VITALS: BMI 42.2
--- NOTE | 2022-09-27 07:25 | ECG_ITS ---
[facility] Test Date: 2022-09-27 Pat Name: Earl Mckeon Department: Room: Gender: Male Acid Filler: : 1970 Requested By: Yamila Amaya Order Number: [id number] Joe MD: Albino Cespedes M.D. Interpretive Statements NAME OF STUDY: LEXISCAN SESTAMIBI STRESS TEST INDICATION: [Angina, ] Procedure: At the baseline, the blood pressure was 130/92 mmHg with a heart rate of 64 bpm. The electrocardiogram showed normal sinus rhythm, normal axis with normal ST and T's. The Lexiscan was infused over a period of 20 seconds. A total of 0.4 mg of Lexiscan was infused. The stress phase was continued for a total of 5 minutes. Heart rate was at the end of stress phase was 69 bpm and a blood pressure of 146/89 mmHg. The EKG at the peak infusion revealed normal sinus rhythm with no significant ST-T wave changes. Sestamibi was injected 20 seconds after the Lexiscan infusion. Blood pressure at the end of recovery phase was 128/80 mmHg with a heart rate of 66 bpm. Conclusion: 1. Normal EKG response to Lexiscan infusion 2. No Lexiscan induced chest pain or cardiac arrhythmia. 3. Normal blood pressure and heart rate response. 4. Sestamibi/sestamibi perfusion scan pending; see separate report. Electronically Signed On 10-17-2022 10:16:25 CDT by Albino Cespedes M.D. [email or web address]
--- NOTE | 2022-09-27 07:25 | NMCV_ITS ---
NM yong perf SPECT r/s* [id number] MckeonShubhamin Age: 52 Gender: M : 1970 Exam Date: 09/27/2022 08:14 Ordering Phys: Yamila Amaya Technologist: ISRAEL Sanchez Exam Location: [facility] Indications: ATHEROSCLEROTIC HEART DISEASE, HYPERTENSION STRESS TEST [facility] IMAGE PROTOCOL Rest/Stress 1 Lexiscan Day Radiopharmaceutical Dose (mCi) Administration Site Administered by Rest: Tc-99m 10.8 IV ISRAEL Sanchez Sestamibi Stress:Tc-99m 32.9 IV ISRAEL Ward Sestamibi Rest: 27-Sep-2022 60 Discovery 630 Stress: 27-Sep-2022 30 Discovery 630 0.4mg Lexiscan. Images obtained in supine and prone position. SPECT RESULTS Technical Quality: Excellent Raw Data Analysis: Normal Image Corrections: No attenuation or motion correction applied Summed Stress Score: 29 Summed Rest Score: 24 Summed Difference Score: 5 PERFUSION FINDINGS Large in size, partially reversible perfusion defects noted in apical, apical anterior and inferolateral paez. This is consistent with large sized infarcts noted in the LAD and left circumflex artery territory with significantly large areas of reji-infarct ischemia. Large sized fixed perfusion defect noted in inferior wall. This is consistent with large sized prior infarct seen in the RCA territory. FUNCTIONAL RESULTS (calculated via Gated SPECT) Stress Image LV EF (%): 49 Stress EDV (mL):142 TID: 1.01 Stress ESV (mL):72 FUNCTIONAL FINDINGS: LV systolic function mildly reduced IMPRESSIONS 1. Abnormal myocardial perfusion imaging with large sized area of prior infarcts with significant reji-infarct ischemia seen in LAD and left circumflex artery territories. 2. Large sized prior infarct noted in the RCA territory. 3. LV systolic function is mildly reduced. Albino Cespedes MD (Electronically Signed) Final Date: 28 September 2022 11:44 S
[2022-09-27] MEDS: regadenoson 0.4 Mg/5 ml Syringe IVP (09:16)
[2022-09-27 09:31] VITALS: BP 128/80; PULSE 67
== END 2022-09-27 06:52 | disposition home or self-care (01) ==
PROVIDERS: PCP Nurse Practitioner Family; Visit Provider Nurse Practitioner Family
DX: I25.10 Atherosclerotic heart disease of native coronary artery without angina pectoris (principal); I10 Essential (primary) hypertension; R93.1 Abnormal findings on diagnostic imaging of heart and coronary circulation; I50.1 Left ventricular failure, unspecified
CPT/HCPCS: 36415; 78452; 93017; 96374; A9500; J2785

== ENCOUNTER 2022-10-04 08:47 | Outpatient (CLI) | payer BC, SELFPAY ==
[2022-10-04] VITALS (11 sets, daily range): BP systolic 114–165; BP diastolic 81–113; PULSE 58–69; RESP 16–20; O2SAT 94–97; BMI 42.2
[2022-10-04] MEDS: diphenhydrAMINE 50 mg Capsule PO (09:00)
[2022-10-04] MEDS: aspirin 325 mg Tablet PO (09:00)
--- NOTE | 2022-10-04 09:00 | XACV_ITS ---
Exam Room: 2 Ht: 178 cm Wt: 133 kg BSA: 2.63 m2 Gender: Male : 1970 Any Known Allergies: No known allergies Exam Priority: Routine Procedure(s): Procedure Description: Diagnostic procedure Procedure Description: Left Heart Catheterization Procedure Description: RAMIREZ Graft Catheterization Procedure Description: Coronary Angiography Diagnostic Cath Status: Elective Diagnostic Findings * INDICATION: Chest pain/ abnormal stress test. * Left Main has no significant disease. * Left Anterior Descending has patent prior stents. * Circumflex has no significant disease. Patent prior stent. * Mid Right Coronary Artery: Mild luminal irregularities. * First Obtuse Marginal Branch Segment: mild 40% stenosis, JAMARI: 3 flow. Has a patent prior stent. * Bypass grafts: RAMIREZ to LAD is atretic. * Coronary angiography shows right dominance. Conclusions 1. Bypass grafts are occluded. 2. Gray[place] coronary arteries are patent with patent prior stents.. 3. Patient has prior CABG. Recommendations * Aggressive risk factor modification. * Outpatient cardiology follow up in 2-4 weeks. Interventional RX Recommendation: medical therapy and/or counseling Diagnostic RX Recommendation: medical therapy and/or counseling Pressures Phase:Rest AO : 129 / 87 ( 106 ) @ 11:21:00 AM 122 / 86 ( 103 ) @ 11:25:00 AM 138 / 78 ( 103 ) @ 11:32:00 AM 137 / 77 ( 102 ) @ 11:32:00 AM LV : 139 / 5 / 28 @ 11:32:00 AM 135 / 4 / 28 @ 11:32:00 AM Valves Phase:DefaultPhase AV : 0.0 @ 10:42:16 AM AV Mean Gradient: 0.0 @ 10:42:16 AM 0.0 @ 10:42:16 AM Clinical Evaluation EBL: 5mL-10mL Procedural Details Procedure Consent Obtained. Admit Source: Out Patient. Pre-Procedure Time Out. Identified patient by full name and date of as verbalized by the patient/guarantor. Does the consent match the physician's order: Yes. Accurate & Complete Informed Consent: Yes. Inpatient/Outpatient History & Physical on Chart: Yes. If H&P is completed, is and addenduem needed: Yes; If yes, is the addendum complete: Yes. Visualize and Verify Site with Patient/Guarantor: N/A. Relevant Radiology Images available: N/A. The risks, benefits, and alternatives of sedation and/or procedure were discussed by physician. The patient agrees to continue. Procedure started. [facility] Clinical Fraility Score: 3: Managing Well. Archival Records Clerk Indications: Worsening Angina. Chest Pain Symptom Assessment: Typical Angina Symptoms. Correct patient, site and procedure confirmed by cath team. Current diagnosis: Chest Pain, Abnormal stress test. PERRLA. Strong, equal hand bar porter bilaterally. Lungs clear x 5 lobes. IV Site on Arrival: 20 gauge in the right anticubital. IV Fluids: 0.9% NaCl at 75ml/hr. 0 mL infused prior to labor training manager. Pre Procedural Pulses: bilateral radial was 3+. Pre Procedural Pulses: bilateral dorsalis pedis was 2+. Pre Procedural Pulses: bilateral posterior tibial was 2+. Oxygen started at 2liters/min via nasal canula. bilateral groins was prepped with chloroprep then draped in the usual sterile fashion. Physician notified. Baseline sample Acquired. HR: 59 BPM. Physician arrived. Physician scrubbed in. Immediate Pre-Procedure Time Out. Correct Patient: Yes; Correct Procedure: Yes; Correct Site: Yes; Correct Patient Position: Yes; Correct Supplies: Yes; Dried Flammable Prep: Yes; Blood Products Available: No;. Lidocaine 1% infiltrated to the right groin. Arterial access obtained with micropuncture set. A 5 nauruan JL4 catheter in over wire. Multiple views taken of left coronary artery. Catheter removed over the standard wire. A 5 nauruan JR4 catheter in over wire. Multiple views taken of right coronary artery. Catheter redirected to left internal mammary. RAMIREZ to LAD visualized. catheter redirected into left ventricle over standard wire. EDP Sample taken: LV 139/5,28; HR: 60 BPM; SpO2: 98%. Pullback taken: LV 135/4,28; AO 138/78(103); Mean: 0mmHg, Peak to Peak: 0mmHg, SEP: 5sec/min; HR: 59 BPM; SpO2: 98%. A Right femoral angiogram was performed to determine safe placement of closure device. A Angio-Seal VIP (St. Aric) was successful obtaining hemostatsis at the Right Femoral artery insertion site. LOT #[id number] EXP 04-11-23. Post Procedure: Pulses reassessed and unchanged. PERRLA. Strong, equal hand bar porter bilaterally. No VTE prophylaxis required. Medication's Wasted: Heparin = 1000 units. Medication's Wasted: Lidocaine 1% = 1 mL. Medication's Wasted: Other = Fentanyl 25 mcg. Total IV fluids: 28 mL. Post-op diagnosis: Occluded Svg grafts, atretic RAMIREZ to LAD. Complications: None. Estimated blood loss: 5mL-10mL. Responsiveness - Normal response to verbal stimuli; alert and oriented, PERRLA. Airway - Unaffected, no intervention required; spontaneous ventilation. Circulation: W/N/L, pulses unchanged. Nausea/Vomiting: No. Procedure completed. Patient transferred by stretcher to CPRU. Vital chart was stopped. Access Site Site: Right Femoral artery Sheath Size: 6 Fr Hemostasis Method: Angio-Seal VIP (St. Aric) Hemostasis Success: Successful Procedure Medications Start: 10:13 AM Stop: 10:13 AM Medication: Versed Amount: 1 mg Route: I.V. Start: 10:13 AM Stop: 10:13 AM Medication: Fentanyl Amount: 50 mcg Route: I.V. Start: 10:16 AM Stop: 10:16 AM Medication: Versed Amount: 1 mg Route: I.V. Start: 10:20 AM Stop: 10:20 AM Medication: Fentanyl Amount: 25 mcg Route: I.V. I, the attending physician, have reviewed and verified all procedure medications. Yes, all medications given per verbal order History/Risk Factors Hypertension: Yes Dyslipidemia: Yes Peripheral Arterial Disease (PAD): No Myocardial Infarction (GA): No Obesity: No Renal Disease: No Tobacco Use: Former Prior Interventions PCI: Yes CABG: Yes Valve Surgery: No Date of PCI: 05/25/2021 Report Signatures Finalized by Albino Cespedes MD on 10/09/2022 02:40 PM
[2022-10-04 09:29] LABS: Basophils # 0.1 10^3/uL (0.0-0.1); Basophils % 0.8 %; Eosinophils # 0.1 10^3/uL (0.0-0.8); Eosinophils % 1.1 %; Hematocrit 46.7 % (42.0-52.0); Hemoglobin 15.7 g/dL (11.7-16.6); Lymphocytes # 1.7 10^3/uL (0.8-4.8); Lymphocytes % 19.1 %; Mean Corpuscular HGB Conc 33.6 g/dL (30.0-36.0); Mean Corpuscular Hemoglobin 30.2 pg (28.0-34.0); Mean Corpuscular Volume 89.8 fl (80-94); Mean Platelet Volume 11.1 fL (7.4-10.4); Monocytes # 0.9 10^3/uL (0.2-0.9); Monocytes % 9.7 %; Neutrophils # 6.03 10^3/uL (1.8-7.7); Neutrophils % 68.4 %; Nucleated Red Blood Cells % 0 %; Platelet Count 202 10^3/cmm (130-400); Red Cell Distribution Width 13.2 % (12.1-15.1); White Blood Count 8.8 10^3/uL (4.0-10.0)
[2022-10-04 09:51] LABS: Anion Gap 14.1 (5-19); Blood Urea Nitrogen 12 mg/dL (6-20); Calcium 8.7 mg/dL (8.5-10.5); Carbon Dioxide 29 mmol/L (22-29); Chloride 101 mmol/L (98-107); Glomerular Filtration Rate 174.6 mL/min (90-130); Glucose 124 mg/dL (65-115); Osmolality Calculated 291 mOsm/kg (285-295); Potassium 4.1 mmol/L (3.5-5.1); Sodium 140 mmol/L (136-145)
--- NOTE | 2022-10-04 10:13 | W.PM.OPSUD ---
Surgery/Procedure H&P Update DATE OF PROCEDURE: October 04, 2022 DATE H&P PERFORMED: 09/20/22 H&P UPDATE INFORMATION: I have reviewed H&P completed within last 30 days, I have examined patient prior to procedure and No changes to prior documentation PREOP DIAGNOSIS: Chest pain/ abnormal stress test PRIMARY INDICATION FOR PROCEDURE: Chest pain/ abnormal stress test PLANNED PROCEDURE: Operation Date: 10/04/22 10:00 Proposed Procedures p [facility] w/wo [id number],Z95.5,Z98.890,I25.10,R07.9,R94.39(Left) - Albino Cespedes M.D Possible percutaneous coronary intervention PATIENT REASSESSED PRIOR TO SEDATION, WITH NO CHANGE NOTED: Yes PHYSICAL EXAM: alert, oriented x 3, clear to auscultation bilaterally and regular rate & rhythm AIRWAY EVAL/ANESTHESIA PLAN: normal airway, ASA III, Local Anesthesia, Risks, benefits & alternatives of sedation and/or procedure discussed and Patient agrees to continue as planned ADDITIONAL INFORMATION: Moderate sedation
--- NOTE | 2022-10-04 10:45 | SUR.EXTENDED ---
Received patient back from [facility] via cot. Patient A & O x3 . spouse at bedside. Right groin with intact Angioseal. Groin soft with no bleeding or hematoma noted. dressing d/I. quality assurance monitor final placed and vital signs obtained. NS infusing to left PIV at 75ml/hr. Plan for transfer to CSU when bed available.
--- NOTE | 2022-10-04 11:40 | SUR.EXTENDED ---
patient transferred via bed to room 112-1. Bedside report and groin access site check with DOMINIQUE Sesay. Groin remains soft with no bleeding or hematoma noted. Dressing D/I. Spouse with patient.
--- NOTE | 2022-10-04 18:04 | PC.NURSE ---
Patient discharged at 16:15. Patient was given verbal and written education, patient verbalized understanding. IV discontinued. Patient taken out in wheelchair, left facility with friend.
== END 2022-10-04 16:35 | disposition home or self-care (01) ==
LOC: CCL 08:55 → CSU 13:48
PROVIDERS: PCP Nurse Practitioner Family; Visit Provider Internal Medicine
DX: R94.39 Abnormal result of other cardiovascular function study (principal); I25.10 Atherosclerotic heart disease of native coronary artery without angina pectoris; Z95.5 Presence of coronary angioplasty implant and graft; I10 Essential (primary) hypertension; R06.09 Other forms of dyspnea; Z79.02 Long term (current) use of antithrombotics/antiplatelets; Z79.82 Long term (current) use of aspirin; E78.5 Hyperlipidemia, unspecified; Z87.891 Personal history of nicotine dependence
CPT/HCPCS: 36415; 80048; 85025; 93459; 96361; 96365; 99152; 99153; C1760; C1769; C1887; C1894; G0269; J1644; J2250; J3010; J7030; Q0163; Q9967

== ENCOUNTER 2022-11-19 23:05 | Emergency (ER) | payer BC, SELFPAY ==
[2022-11-19 23:11] VITALS: BP 157/92; PULSE 68; RESP 20; TEMP 36.6; O2SAT 94
--- NOTE | 2022-11-19 23:37 | ED_ITS ---
HPI - Epistaxis General: Chief complaint: Epistaxis Stated complaint: nose bleed Time Seen by Provider: 11/19/22 23:33 Source: patient Mode of arrival: ambulatory Limitations: no limitations History of Present Illness: 52-year-old male states he had a nosebleed over the last 3 nights. States tonight it was lasting longer than normal he has been exposed to a lot of dry air. He denies any pain denies any injuries the bleeding is since resolved he has no bleeding at this time. Associated symptoms: Deny fever(s), headache(s) or vomiting Review of Systems Const: Denies: fever(s) or chills ENMT: Reports: epistaxis; Denies: throat pain or dental pain Card: Denies: chest pain Resp: Denies: dyspnea GI: Denies: abdominal pain, nausea or vomiting Musc: Denies: neck pain or back pain Skin/Breast: Denies: rash Neuro: Denies: headache(s) PFSH ED PFSH: Medical History CAD (coronary artery disease) HLD (hyperlipidemia) HTN (hypertension) Surgical History H/O heart artery stent History of open heart surgery S/P right coronary artery (RCA) stent placement Family History Father Hypertension Grandmother Stroke Social History Smoking and tobacco status: former smoker Alcohol intake: current Alcohol intake frequency: 0-2 Drinks per Day Substance/Drug Use: former Physical Exam Const: COMMON NORMALS: no acute distress and patient oriented x3 HENMT: COMMON NORMALS: normocephalic and atraumatic HEAD & SCALP: normocephalic and atraumatic OTHER: Dried blood in right nare no active bleeding Eye: COMMON NORMALS: conjunctivae normal CONJUNCTIVA: Yes conjunctivae normal Neck/C-Spine: COMMON NORMALS: full ROM Chest: COMMONS NORMALS: normal inspection of the chest Resp: COMMON NORMALS: normal respiratory effort Cardio: COMMON NORMALS: regular rate RATE: regular rate GI: INSPECTION: Yes normal to inspection Extremity: COMMON NORMALS: normal to inspection Neuro: COMMON NORMALS: patient oriented x3 Psych: COMMON NORMALS: mental status grossly normal Skin: COMMON NORMALS: no rashes or lesions noted GENERAL SKIN EXAM: no rashes or lesions noted Course Vital Signs: Vital signs: Vital Signs Temperature 97.9 F 11/19/22 23:11 Pulse Rate 68 11/19/22 23:11 Respiratory Rate 20 H 11/19/22 23:11 Blood Pressure 157/92 11/19/22 23:11 Pulse Oximetry 94 11/19/22 23:11 Oxygen Delivery Me thod Room Air 11/19/22 23:11 MDM - Epistaxis Medical Decision Making Patient presents here with nosebleed that is since resolved likely due to new drying out of the nare we will have him use lube in his right nare did send him home with a clamp as well its not bleeding at this time he is well-appearing h ere he is stable for discharge. Discharge Plan Discharge Patient Disposition: Home Clinical Impression: Epistaxis Condition: Stable Prescriptions: No Action nitroglycerin 0.4 mg tablet, sublingual 0.4 mg sublingual Q5M PRN (Reason: Chest Pain) Qty: 25 3RF Rx Instructions: do not exceed 3 doses per episode metoprolol tartrate 50 mg tablet 50 mg PO BID Qty: 180 2RF atorvastatin 40 mg tablet 40 mg PO QPM Qty: 90 3RF omeprazole 20 mg capsule,delayed release(DR/EC) 20 mg PO BID sertraline 50 mg tablet 100 mg PO DAILY clopidogrel 75 mg tablet 75 mg PO QAM aspirin 81 mg tablet,delayed release (DR/EC) 81 mg PO QPM lisinopril 10 mg tablet 10 mg PO BEDTIME potassium gluconate 595 mg (99 mg) tablet 1,785 mg PO QAM furosemide 20 mg tablet 20 mg PO BID Qty: 120 0RF Discharge Orders: Discharge ED (Routine); Ordered 11/19/22 Ordered By: Emmanuelle Scott Referrals: Anushka Ortez NP [Primary Care Provider] - 1-3 days Discharge Diet: Advance as tolerated Discharge Activity: Resume usual activity Patient Instructions: Epistaxis - Adult Coding Level of Care Code ED Medical Laboratory Technical Officer for Peter Saldivar
== END 2022-11-19 23:51 | disposition home or self-care (01) ==
PROVIDERS: Emergency Provider Emergency Medicine; PCP Nurse Practitioner Family
DX: R04.0 Epistaxis (principal)
CPT/HCPCS: 99282

== ENCOUNTER 2023-03-04 23:14 | Emergency (ER) | payer OTHER, SELFPAY ==
[2023-03-04 23:20] VITALS: BP 165/107; PULSE 87; RESP 18; TEMP 36.7; O2SAT 96; BMI 42.0
[2023-03-04 23:25] VITALS: PULSE 83; O2SAT 94
[2023-03-04] MEDS: oxymetazoline 0.05% Nasal Spray 15 mL 2 SPRAY NOSTRIL-B (23:32)
[2023-03-05 00:08] LABS: Basophils # 0.1 10^3/uL (0.0-0.1); Basophils % 0.6 %; Eosinophils # 0.1 10^3/uL (0.0-0.8); Eosinophils % 1.1 %; Hematocrit 42.8 % (37-53); Lymphocytes # 1.9 10^3/uL (0.8-4.8); Lymphocytes % 21.3 %; Mean Corpuscular HGB Conc 34.1 g/dL (30-55); Mean Corpuscular Hemoglobin 30.2 pg (27-33); Mean Corpuscular Volume 88.4 fl (82-101); Mean Platelet Volume 10.9 fL (7.4-10.4); Monocytes # 0.8 10^3/uL (0.2-0.9); Monocytes % 8.6 %; Neutrophils # 6.01 10^3/uL (1.8-7.7); Neutrophils % 67.8 %; Nucleated Red Blood Cells % 0 %; Platelet Count 171 10^3/cmm (157-399); Red Blood Count 4.84 10^6/uL (3.85-5.65); Red Cell Distribution Width 13.5 % (12.1-15.1); White Blood Count 8.86 10^3/uL (3.29-11.43)
[2023-03-05 00:25] LABS: INR 1.01 (0.8-1.2)
[2023-03-05 00:26] LABS: Partial Thromboplastin Time 29.5 SECONDS (23.9-36.7)
[2023-03-05 00:34] LABS: Alanine Aminotransferase 28 U/L (0-41); Albumin Level 4.4 g/dL (3.5-5.2); Alkaline Phosphatase 97 U/L (40-130); Anion Gap 15.1 (5-19); Aspartate Amino Transferase 18 U/L (0-40); Blood Urea Nitrogen 15 mg/dL (6-20); Calcium 9.2 mg/dL (8.5-10.5); Carbon Dioxide 26 mmol/L (22-29); Chloride 103 mmol/L (98-107); Globulin 2.6 g/dL (1.3-4.6); Glucose 162 mg/dL (65-115); Osmolality Calculated 294 mOsm/kg (285-295); Potassium 4.1 mmol/L (3.5-5.1); Sodium 140 mmol/L (136-145); Total Bilirubin 0.4 mg/dL (0.15-1.2)
[2023-03-05 00:40] VITALS: BP 121/77; PULSE 92; RESP 18; O2SAT 93
[2023-03-05 01:20] VITALS: BP 135/91; PULSE 95; RESP 18; O2SAT 95
--- NOTE | 2023-03-05 01:45 | ED_ITS ---
HPI - Epistaxis General: Chief complaint: Epistaxis Stated complaint: nose bleed Time Seen by Provider: 03/04/23 23:38 History of Present Illness: 53-year-old male on aspirin and Plavix. He presents with a right-sided nosebleed. Patient held pressure on the way here, nosebleed is stopped. He notes that he lost quite a bit of blood at home. No trauma. No specific reason for nosebleed. He has no history of bleeding from other areas of his body Associated symptoms: Deny fever(s), headache(s) or vomiting Review of Systems Const: Denies: fever(s) or chills Eyes: Denies: change in vision ENMT: Denies: throat pain Card: Denies: chest pain or palpitations Resp: Denies: dyspnea GI: Reports: nausea; Denies: abdominal pain or vomiting Skin/Breast: Denies: rash Neuro: Denies: headache(s) PFSH ED PFSH: Medical History CAD (coronary artery disease) HLD (hyperlipidemia) HTN (hypertension) Surgical History H/O heart artery stent History of open heart surgery S/P right coronary artery (RCA) stent placement Family History Father Hypertension Grandmother Stroke Social History Smoking and tobacco status: former smoker Alcohol intake: current Alcohol intake frequency: 0-2 Drinks per Day Substance/Drug Use: former Physical Exam Const: COMMON NORMALS: no acute distress GENERAL APPEARANCE: cooperative; not ill appearing and not frail appearing HENMT: COMMON NORMALS: normocephalic, atraumatic and Normal external nose present HEAD & SCALP: normocephalic and atraumatic FACE & SINUS: normal facial exam and face symmetric NOSE: Normal external nose present and Epistaxis present on the right (Not active) anterior source (Small ulceration floor of nasal passage clot present) and dried blood present; no active bleeding Eye: COMMON NORMALS: Equal, round and reactive pupils present and EOMs intact bilaterally PUPIL: Yes Equal, round and reactive pupils present Neck/C-Spine: GENERAL: Yes trachea midline Chest: CHEST: Yes Symmetrical chest wall rise Resp: COMMON NORMALS: normal respiratory effort, No retractions, No use of accessory muscles and clear to auscultation bilaterally AUSCULTATION: clear to auscultation bilaterally Cardio: COMMON NORMALS: regular rate and regular rhythm RATE: regular rate RHYTHM: regular rhythm GI: COMMON NORMALS: Normal to inspection, nondistended, normoactive bowel sounds present Extremity: COMMON NORMALS: no pedal edema Neuro: DOMO COMA SCALE: document GCS findings [place] coma scale eye opening: Spontaneous Dom[place] coma scale verbal response: Orientated [place] coma scale motor response: Obey commands Domo coma scale total score: 15 SENSORY EXAM: Yes extremities (intact) Psych: COMMON NORMALS: speech normal SPEECH: Yes normal speech Skin: COMMON NORMALS: no rashes or lesions noted GENERAL SKIN EXAM: no rashes or lesions noted Course Vital Signs: Vital signs: Vital Signs Temperature 98.1 F 03/04/23 23:20 Pulse Rate 95 03/05/23 01:20 Respiratory Rate 18 03/05/23 01:20 Blood Pressure 135/91 03/05/23 01:20 Pulse Oximetry 95 03/05/23 01:20 Oxygen Delivery Me thod Room Air 03/05/23 01:20 MDM - Epistaxis Medical Decision Making No rebleeding here. He is given Afrin here, and will continue Afrin twice daily for the next 3 days. Vaseline to the nasal passages to keep them moist. Since he has not rebled, we will elect not to pack the patient. CBC is normal. BMP is not remarkable. Liver enzymes are normal. Coagulation studies are normal. Outpatient follow-up. He is sent home with a nasal clamp for potential rebleeding. Lab Data 03/05/23 00:00 03/05/23 00:00 Laboratory Results WBC 8.86 10^3/uL (3.29-11.43) 03/05/23 00:00 RBC 4.84 10^6/uL (3.85-5.65) 03/05/23 00:00 Hgb 14.60 g/dL (11.27-16.99) 03/05/23 00:00 Hct 42.8 % (37-53) 03/05/23 00:00 MCV 88.4 fl (82-101) 03/05/23 00:00 MCH 30.2 pg (27-33) 03/05/23 00:00 MCHC 34.1 g/dL (30-55) 03/05/23 00:00 RDW 13.5 % (12.1-15.1) 03/05/23 00:00 Plt Count 171 10^3/cmm (157-399) 03/05/23 00:00 MPV 10.9 fL (7.4-10.4) H 03/05/23 00:00 Neut % (Auto) 67.8 % 03/05/23 00:00 Lymph % (Auto) 21.3 % 03/05/23 00:00 Simpson % (Auto) 8.6 % 03/05/23 00:00 Eos % (Auto) 1.1 % 03/05/23 00:00 Baso % (Auto) 0.6 % 03/05/23 00:00 Neut # (Auto) 6.01 10^3/uL (1.8-7.7) 03/05/23 00:00 Lymph # (Auto) 1.9 10^3/uL (0.8-4.8) 03/05/23 00:00 Simpson # (Auto) 0.8 10^3/uL (0.2-0.9) 03/05/23 00:00 Eos # (Auto) 0.1 10^3/uL (0.0-0.8) 03/05/23 00:00 Baso # (Auto) 0.1 10^3/uL (0.0-0.1) 03/05/23 00:00 Nucleated RBC % (auto) 0 % 03/05/23 00:00 Nucleated RBCs # 0.0 /100WBC 03/05/23 00:00 PT 13.60 SECONDS (12.1-14.9) 03/05/23 00:00 INR 1.01 (0.8-1.2) 03/05/23 00:00 APTT 29.5 SECONDS (23.9-36.7) 03/05/23 00:00 Sodium 140 mmol/L (136-145) 03/05/23 00:00 Potassium 4.1 mmol/L (3.5-5.1) 03/05/23 00:00 Chloride 103 mmol/L (98-107) 03/05/23 00:00 Carbon Dioxide 26 mmol/L (22-29) 03/05/23 00:00 Anion Gap 15.1 (5-19) 03/05/23 00:00 BUN 15 mg/dL (6-20) 03/05/23 00:00 Creatinine 1.1 mg/dL (0.7-1.2) 03/05/23 00:00 GFR Calculation 70.0 mL/min (90-130) L 03/05/23 00:00 Glucose 162 mg/dL (65-115) H 03/05/23 00:00 Calculated Osmolality 294 mOsm/kg (285-295) 03/05/23 00:00 Calcium 9.2 mg/dL (8.5-10.5) 03/05/23 00:00 Total Bilirubin 0.4 mg/dL (0.15-1.2) 03/05/23 00:00 AST 18 U/L (0-40) 03/05/23 00:00 ALT 28 U/L (0-41) 03/05/23 00:00 Alkaline Phosphatase 97 U/L (40-130) 03/05/23 00:00 Total Protein 7.0 g/dL (6.6-8.7) 03/05/23 00:00 Albumin 4.4 g/dL (3.5-5.2) 03/05/23 00:00 Globulin 2.6 g/dL (1.3-4.6) 03/05/23 00:00 No radiology studies performed this visit Discharge Plan Discharge Patient Disposition: Home Clinical Impression: Epistaxis Condition: Stable Prescriptions: No Action nitroglycerin 0.4 mg tablet, sublingual 0.4 mg sublingual Q5M PRN (Reason: Chest Pain) Qty: 25 3RF Rx Instructions: do not exceed 3 doses per episode metoprolol tartrate 50 mg tablet 50 mg PO BID Qty: 180 2RF atorvastatin 40 mg tablet 40 mg PO QPM Qty: 90 3RF furosemide 20 mg tablet 20 mg PO BID Qty: 180 3RF lisinopril 10 mg tablet 10 mg PO BEDTIME Qty: 90 3RF omeprazole 20 mg capsule,delayed release(DR/EC) 20 mg PO BID sertraline 50 mg tablet 100 mg PO DAILY clopidogrel 75 mg tablet 75 mg PO QAM aspirin 81 mg tablet,delayed release (DR/EC) 81 mg PO QPM potassium gluconate 595 mg (99 mg) tablet 1,785 mg PO QAM Discharge Orders: Discharge ED (Routine); Ordered 03/05/23 Ordered By: Francesco Harris Referrals: Anushka Ortez NP [Primary Care Provider] - 1-3 days Patient Instructions: Nosebleed (ED) Activity Restrictions/Additional Instructions: Use the Afrin you were dispensed twice daily for the next 3 days, then stop. You may use small amounts of Vaseline to the rim of your nasal opening a couple of times a day to keep the area moisturized. Try not to blow your nose violently for the next 3 to 4 days. Return for any repeat episodes of bleeding not controlled by pressure, etc. For repeat bleeding, clamp your nose using the clamp you were dispensed for 30 minutes without releasing it. If still bleeding, significantly, you may clamp the nose again and come to the emergency department. Coding Level of Care Code ED Manager Rn for Peter Saldivar
== END 2023-03-05 01:22 | disposition home or self-care (01) ==
PROVIDERS: Emergency Provider Emergency Medicine; PCP Nurse Practitioner Family
DX: R04.0 Epistaxis (principal); Z79.02 Long term (current) use of antithrombotics/antiplatelets; Z79.82 Long term (current) use of aspirin; I25.10 Atherosclerotic heart disease of native coronary artery without angina pectoris; I10 Essential (primary) hypertension; E78.5 Hyperlipidemia, unspecified; Z87.891 Personal history of nicotine dependence
CPT/HCPCS: 36415; 80053; 85025; 85610; 85730; 99283

== ENCOUNTER → 2023-03-21 09:31 | Outpatient (BNVA) | payer OTHER, SELFPAY | PROVIDERS: Visit Provider Family Medicine Adult Medicine | DX: E78.5 Hyperlipidemia, unspecified (principal); I10 Essential (primary) hypertension; I25.10 Atherosclerotic heart disease of native coronary artery without angina pectoris; R73.09 Other abnormal glucose | CPT/HCPCS: 80061; 83036 ==

== ENCOUNTER → 2023-07-25 08:27 | Outpatient (BNVA) | payer OTHER, SELFPAY | PROVIDERS: PCP Family Medicine Adult Medicine; Visit Provider Family Medicine Adult Medicine | DX: E11.69 Type 2 diabetes mellitus with other specified complication (principal); E66.9 Obesity, unspecified; I10 Essential (primary) hypertension; I25.10 Atherosclerotic heart disease of native coronary artery without angina pectoris; E78.5 Hyperlipidemia, unspecified; M25.571 Pain in right ankle and joints of right foot | CPT/HCPCS: 80053; 80061; 83036; 84443; 85025 ==

== ENCOUNTER → 2023-10-24 08:14 | Outpatient (BNVA) | payer OTHER, SELFPAY | PROVIDERS: PCP Family Medicine Adult Medicine; Visit Provider Family Medicine Adult Medicine | DX: E11.69 Type 2 diabetes mellitus with other specified complication (principal); E66.9 Obesity, unspecified; I10 Essential (primary) hypertension; E78.5 Hyperlipidemia, unspecified; M25.562 Pain in left knee; Z98.890 Other specified postprocedural states | CPT/HCPCS: 80053; 83036 ==

== ENCOUNTER 2023-11-22 06:00 | Outpatient (CLI) | payer OTHER, SELFPAY | END 2023-11-22 23:59 | disposition home or self-care (01) | LOC: SPT 11-23 09:38 | PROVIDERS: PCP Family Medicine Adult Medicine; Visit Provider Specialist | DX: Z46.89 Encounter for fitting and adjustment of other specified devices (principal); M17.12 Unilateral primary osteoarthritis, left knee | CPT/HCPCS: 97760; L1852 ==

== ENCOUNTER → 2023-11-22 12:59 | Outpatient (BNVA) | payer OTHER, SELFPAY | PROVIDERS: PCP Family Medicine Adult Medicine; Visit Provider Specialist | DX: M17.12 Unilateral primary osteoarthritis, left knee | CPT/HCPCS: 73560; 73565 ==

== ENCOUNTER → 2024-08-29 09:40 | Outpatient (BNVA) | payer OTHER, SELFPAY | PROVIDERS: PCP Family Medicine; Visit Provider Family Medicine | DX: E11.69 Type 2 diabetes mellitus with other specified complication (principal); E66.9 Obesity, unspecified | CPT/HCPCS: 80053; 80061; 83036; 84439; 84443; 85025 ==

== ENCOUNTER 2025-02-26 12:41 | Outpatient (CLI) | payer BC, SELFPAY ==
--- NOTE | 2025-02-26 12:44 | XR_ITS ---
WS: [id number] XR lumbar spine 2-3V* [id number] REASON FOR EXAM: lower back pain FINDINGS: Mild rotatory dextroscoliosis. Straightening of the normal lordosis. Mild chronic wedge-shaped compression deformity of the L1. Mild chronic biconcave compression deformities L2-L5. No focal vertebral body lesion. Moderate osteophytosis L1-S1. Moderate degenerative arthropathy in the facet joints L3-S1. No spondylolysis. No significant spondylolisthesis. XR/XR lumbar spine 2-3V* [id number] IMPRESSION: Lumbar degenerative spondylosis as above. Mild multilevel progression compared to 12/27/2021.
== END 2025-02-26 12:42 | disposition home or self-care (01) ==
LOC: RAD 12:42
PROVIDERS: PCP Family Medicine; Visit Provider Family Medicine
DX: M54.9 Dorsalgia, unspecified (principal); G89.29 Other chronic pain; M54.50 Low back pain, unspecified; M47.816 Spondylosis without myelopathy or radiculopathy, lumbar region
CPT/HCPCS: 72100

== ENCOUNTER 2025-04-10 12:05 | Outpatient (CLI) | payer BC, SELFPAY ==
--- NOTE | 2025-04-10 12:15 | XR_ITS ---
WS: [id number] Exam: XR foot RT min 3V* [id number] Date/Time of Exam: 04/10/2025 12:17 PM Reason For Exam: R toe swelling There appears to be some osseous destruction and fragmentation of the proximal end of the distal phalanx of the great toe with soft tissue swelling. This may represent acute on chronic osteomyelitis. There is soft tissue swelling. No other sign of bone destruction or fracture. Large posterior heel spur. The remaining joints are relatively well-maintained. Minimal DJD in the midfoot joints and the first MP joint. XR/XR foot RT min 3V* [id number] IMPRESSION: 1. Osseous destruction and fragmentation of the proximal end of the distal phal anx of the great toe. This may represent acute on chronic osteomyelitis. There is soft tissue swelling. 2. No other sign of bone destruction or fracture. Degenerative changes.
== END 2025-04-10 12:06 | disposition home or self-care (01) ==
PROVIDERS: PCP Family Medicine; Visit Provider Family Medicine
DX: M79.674 Pain in right toe(s) (principal); M77.31 Calcaneal spur, right foot; Z18.9 Retained foreign body fragments, unspecified material; M89.8X7 Other specified disorders of bone, ankle and foot; M19.071 Primary osteoarthritis, right ankle and foot
CPT/HCPCS: 73630

== ENCOUNTER 2025-04-10 16:20 | Emergency (ER) | payer BC, SELFPAY ==
[2025-04-10 16:26] VITALS: BP 151/89; PULSE 75; TEMP 36.6; O2SAT 97; BMI 40.6
--- NOTE | 2025-04-10 16:57 | W.ED.EXTPRO ---
HPI - Extremity Problem General: Chief complaint: Extremity Injury, Lower Stated complaint: R foot big toe swollen Dr edenilson Time Seen by Provider: 04/10/25 16:35 History of Present Illness: 55-year-old gentleman with diabetes that kicked a desk 3 weeks ago. Content: Patient was mad, kicked his desk, broke 3 doors in his desk, however he states that he still glad he did that instead of taking it out on someone else. He stated he was so upset he would went to penitentiary. He does have remorse over his big right toe. Associated symptoms: Deny chest pain or fever(s) Related Data Home Medications ?Medication ?Instructions ?Recorded ?Confirmed aspirin 81 mg tablet,delayed 81 mg PO QPM 04/08/22 04/10/25 release potassium gluconate 595 mg (99 mg) 1,785 mg PO QAM 10/11/22 04/10/25 tablet Previous Rx's ?Medication ?Instructions ?Recorded diabetic shoes with 3 inserts #1 ea 08/08/23 medial excavator operator brace, left knee #1 ea 11/22/23 metoprolol tartrate 50 mg tablet 50 mg PO BID blood pressure #180 01/25/24 tabs nitroglycerin 0.4 mg sublingual 0.4 mg sublingual Q5M PRN Chest 01/25/24 tablet Pain #25 tabs fluticasone propionate 50 2 spray intranasal DAILY #16 grams 10/11/24 mcg/actuation nasal spray,suspension (Flonase Allergy Relief) atorvastatin 40 mg tablet See Rx Instructions .Route 01/20/25 .COMPLEX #90 tabs furosemide 20 mg tablet 20 mg PO BID #180 tabs 02/11/25 buspirone 15 mg tablet 15 mg PO BID #180 tabs 02/12/25 clopidogrel 75 mg tablet 75 mg PO QAM circulation #90 tabs 02/12/25 lisinopril 20 mg tablet 20 mg PO BEDTIME #90 tabs 02/12/25 omeprazole 40 mg capsule,delayed 40 mg PO DAILY #90 caps 02/12/25 release sertraline 50 mg tablet 100 mg (2 x 50 mg) PO DAILY mental 03/18/25 health #90 tabs metformin 1,000 mg tablet 1,000 mg PO BID new diabetes #180 04/02/25 tabs doxycycline hyclate 100 mg capsule 100 mg PO BID 10 days #20 caps 04/10/25 Allergies Allergy/AdvReac Type Severity Reaction Status Date / Time isosorbide (From Imdur) AdvReac Severe ADR-Headach Verified 04/10/25 16:30 e Review of Systems General: Reports: 10 or more systems reviewed and unremarkable except in HPI and below Const: Denies: fever(s) or chills Eyes: Denies: change in vision ENMT: Denies: throat pain or nasal obstruction Card: Denies: chest pain, palpitations or dyspnea on exertion Resp: Denies: dyspnea GI: Denies: abdominal pain, nausea or vomiting Musc: Reports: back pain and joint pain (R great toe); Denies: neck pain Skin/Breast: Denies: new lesions Neuro: Denies: headache(s), numbness in extremities or weakness in extremities Psych: Denies: anxiety or depression PFS ED PFSH: Medical History (Updated 04/10/25 @ 17:02 by TARA Martins) Anxiety Moderate major depression Left lateral knee pain Pain, joint, foot, right Morbid obesity with BMI of 40.0-44.9, adult Diabetes mellitus type 2 in obese GERD (gastroesophageal reflux disease) HTN (hypertension) HLD (hyperlipidemia) CAD (coronary artery disease) CABG x5 vessels 2013, Multiple stents, rt RCA stent placement Surgical History History of open heart surgery CABG x5 vessels in 2013 H/O left knee surgery 1986 Flannery's cyst S/P right coronary artery (RCA) stent placement Family History Father Hypertension Grandmother Stroke Social History Smoking and tobacco/nicotine status: former use of tobacco/nicotine Alcohol intake: current Alcohol intake frequency: few times a week Alcohol type: beer Substance/Drug Use: former Physical Exam Const: COMMON NORMALS: no acute distress, average body habitus and patient oriented x3 HENMT: COMMON NORMALS: normocephalic and atraumatic HEAD & SCALP: normocephalic and atraumatic Neck/C-Spine: COMMON NORMALS: full ROM and no lymphadenopathy Chest: COMMONS NORMALS: normal inspection of the chest and normal palpation of entire chest wall Resp: COMMON NORMALS: normal respiratory effort, No retractions and clear to auscultation bilaterally AUSCULTATION: clear to auscultation bilaterally Cardio: COMMON NORMALS: regular rate and regular rhythm RATE: regular rate RHYTHM: regular rhythm GI: COMMON NORMALS: Normal to inspection, nondistended, normoactive bowel sounds present, Soft to palpation and non-tender PALPATION: Yes Soft to palpation Extremity: NARRATIVE EXTREMITY EXAM: Right big toe: Edema, loss of toenail, redness on the lateral margin, tenderness. Neuro: COMMON NORMALS: patient oriented x3 Psych: COMMON NORMALS: mental status grossly normal, Normal thought process present and cooperative THOUGHT PROCESS: Normal thought process present Skin: COMMON NORMALS: no rashes or lesions noted and no wounds GENERAL SKIN EXAM: no rashes or lesions noted Course Vital Signs: Vital signs: Vital Signs Temperature 97.8 F 04/10/25 16:26 Pulse Rate 75 04/10/25 16:26 Blood Pressure 151/89 04/10/25 16:26 Pulse Oximetry 97 04/10/25 16:26 Oxygen Delivery Me thod Room Air 04/10/25 16:26 MDM - Extremity (Nontraumatic) Medical Decision Making Distal first toe phalanx with distraction/fracture Patient will be treated with doxycycline, and most likely will need to be extended, as well as sent to podiatry. This will need to be evaluated by MRI. There is no need for inpatient MRI since this was a trauma, and 3 weeks ago. This can take place on an urgent outpatient basis. All of his questions answered to his satisfaction. Referral to podiatry has been made. Medical Records I reviewed the patient's medical records. All radiology interpretation(s) finalized by discharge Discharge Plan Discharge Patient Disposition: Home Clinical Impression: Acute osteomyelitis of phalanx of right foot Condition: Stable Prescriptions: New doxycycline hyclate 100 mg capsule 100 mg PO BID 10 Days Qty: 20 0RF No Action (DME) diabetic shoes with 3 inserts See Rx Instructions .Route .MEDSUPPLY Qty: 1 0RF Rx Instructions: As directed to the shoe basim fluticasone propionate [Flonase Allergy Relief] 50 mcg/actuation spray,suspension 2 spray intranasal DAILY Qty: 16 0RF Rx Instructions: administer into each nostril metoprolol tartrate 50 mg tablet 50 mg PO BID Qty: 180 3RF nitroglycerin 0.4 mg tablet, sublingual 0.4 mg sublingual Q5M PRN (Reason: Chest Pain) Qty: 25 3RF Rx Instructions: do not exceed 3 doses per episode (DME) medial excavator operator brace, left knee See Rx Instructions .Route .MEDSUPPLY Qty: 1 0RF Rx Instructions: As directed buspirone 15 mg tablet 15 mg PO BID Qty: 180 1RF clopidogrel 75 mg tablet 75 mg PO QAM Qty: 90 3RF lisinopril 20 mg tablet 20 mg PO BEDTIME Qty: 90 1RF omeprazole 40 mg capsule,delayed release(DR/EC) 40 mg PO DAILY Qty: 90 1RF atorvastatin 40 mg tablet See Rx Instructions .ROUTE .COMPLEX Qty: 90 0RF Dose Instruction: Take 1 tablet by mouth in the evening Rx Instructions: Take 1 tablet by mouth in the evening furosemide 20 mg tablet 20 mg PO BID Qty: 180 3RF sertraline 50 mg tablet 100 mg PO DAILY Qty: 90 1RF metformin 1,000 mg tablet 1,000 mg PO BID Qty: 180 3RF aspirin 81 mg tablet,delayed release (DR/EC) 81 mg PO QPM potassium gluconate 595 mg (99 mg) tablet 1,785 mg PO QAM Discharge Orders: Discharge ED (Routine); Ordered 04/10/25 Ordered By: Pamela Marc Referrals: Gen Cash DPM [Physician, Podiatry] Prem Garcia MD [Primary Care Provider, Family Practice] Discharge Diet: Diabetic Discharge Activity: Limit activity as instructed Patient Instructions: Fractures - Phalanx (Toe), Osteomyelitis (ED), Patient Portal & Sirena Instructions Activity Restrictions/Additional Instructions: - Follow-up with Dr. Cash - Hard shoe at all times -Probiotic as we discussed to avoid infectious diarrhea Print Language: Bulgarian Coding Level of Care Code ED Cushion Stuffer for Peter Saldivar
== END 2025-04-10 17:38 | disposition home or self-care (01) ==
PROVIDERS: Emergency Provider Physician Assistant; PCP Family Medicine
DX: M86.171 Other acute osteomyelitis, right ankle and foot (principal); Z79.82 Long term (current) use of aspirin; Z79.84 Long term (current) use of oral hypoglycemic drugs; Z79.02 Long term (current) use of antithrombotics/antiplatelets; Z87.891 Personal history of nicotine dependence; I25.10 Atherosclerotic heart disease of native coronary artery without angina pectoris; E78.5 Hyperlipidemia, unspecified; E11.9 Type 2 diabetes mellitus without complications; I10 Essential (primary) hypertension
CPT/HCPCS: 99283

== ENCOUNTER → 2025-04-15 12:53 | Outpatient (BNVA) | payer BC, SELFPAY | PROVIDERS: PCP Family Medicine; Visit Provider Podiatrist Foot & Ankle Surgery | DX: M79.671 Pain in right foot (principal); S92.401A Displaced unspecified fracture of right great toe, initial encounter for closed fracture; W22.8XXA Striking against or struck by other objects, initial encounter | CPT/HCPCS: 73630 ==

== ENCOUNTER 2025-04-20 05:30 | Observation (INO) | payer BC, SELFPAY ==
[2025-04-20] VITALS (50 sets, daily range): BP systolic 122–183; BP diastolic 67–95; PULSE 57–90; RESP 4–35; TEMP 36.4; O2SAT 91–97; BMI 40.6
--- NOTE | 2025-04-20 05:37 | XRR_ITS ---
PROCEDURE INFORMATION: Exam: XR Chest Exam date and time: 04/20/2025 5:41 AM Age: 55 years old Clinical indication: Chest pressure; Prior surgery; Surgery date: 6+ months; Surgery type: Cabg; C/O chest pain; Additional info: Cp TECHNIQUE: Imaging protocol: Radiologic exam of the chest. Views: 1 view. COMPARISON: CR XR chest 1V portable [id number] 01/27/2021 1:07 PM FINDINGS: Lungs: Unremarkable. No consolidation. Pleural spaces: Unremarkable. No pleural effusion. No pneumothorax. Heart/Mediastinum: Stable cardiomegaly. Bones/joints: Post median sternotomy and CABG. XR/XR chest 1V portable [id number] IMPRESSION: Cardiomegaly without evidence of failure.
--- NOTE | 2025-04-20 05:39 | ECG_ITS ---
[employer] Test Date: 2025-04-20 Pat Name: Earl Mckeon Department: Room: Gender: Male Packer Insulation: : 1970 Requested By: Francesco Brown Order Number: [id number] Heath MD: Any Cooper M.D. Measurements Intervals [place] Rate: 62 P: 40 ID: [id number] QRS: 36 QRSD: 102 T: 135 QT: 424 QTc: 432 Interpretive Statements SINUS RHYTHM NONSPECIFIC ST & T-WAVE ABNORMALITY Compared to ECG 01/27/2021 14:18:37 T-wave abnormality now present Myocardial infarct finding no longer present Electronically Signed On 04-20-2025 20:14:51 ELECTROMECHANIC by Any Cooper M.[email or web address]
--- NOTE | 2025-04-20 05:48 | W.ED.CHESTPA ---
Documented by User: Francesco Kevin Steven, DO 04/20/25 15:39 HPI - Chest Pain General: Chief Complaint: Chest Pain Stated Complaint: CP pain in l arm Time Seen by Provider: 04/20/25 05:43 History of Present Illness: Patient is a 55-year-old male presenting with chest pain that has been off and on for a while but worsened over the past couple of days. He describes left arm pain that feels like it's on fire and associated shortness of breath. Yesterday, he experienced severe heartburn-like pain in the center of his chest that radiated to his spine. Today, he reports the pain is a little bit better than what it was yesterday. Related Data Home Medications ?Medication ?Instructions ?Recorded ?Confirmed aspirin 81 mg tablet,delayed 81 mg PO QPM 04/08/22 04/20/25 release potassium gluconate 595 mg (99 mg) 1,785 mg PO QAM 10/11/22 04/20/25 tablet doxycycline hyclate 100 mg capsule 100 mg PO BID 04/20/25 04/20/25 Previous Rx's ?Medication ?Instructions ?Recorded diabetic shoes with 3 inserts #1 ea 08/08/23 medial steel unloader brace, left knee #1 ea 11/22/23 metoprolol tartrate 50 mg tablet 50 mg PO BID blood pressure #180 01/25/24 tabs nitroglycerin 0.4 mg sublingual 0.4 mg sublingual Q5M PRN Chest 01/25/24 tablet Pain #25 tabs fluticasone propionate 50 2 spray intranasal DAILY #16 grams 10/11/24 mcg/actuation nasal spray,suspension (Flonase Allergy Relief) furosemide 20 mg tablet 20 mg PO BID #180 tabs 02/11/25 buspirone 15 mg tablet 15 mg PO BID #180 tabs 02/12/25 clopidogrel 75 mg tablet 75 mg PO QAM circulation #90 tabs 02/12/25 lisinopril 20 mg tablet 20 mg PO BEDTIME #90 tabs 02/12/25 omeprazole 40 mg capsule,delayed 40 mg PO DAILY #90 caps 02/12/25 release sertraline 50 mg tablet 100 mg (2 x 50 mg) PO DAILY mental 03/18/25 health #90 tabs metformin 1,000 mg tablet 1,000 mg PO BID new diabetes #180 04/02/25 tabs atorvastatin 40 mg tablet See Rx Instructions .Route 04/18/25 .COMPLEX #90 tabs Allergies Allergy/AdvReac Type Severity Reaction Status Date / Time isosorbide (From Imdur) AdvReac Severe ADR-Headach Verified 04/15/25 10:00 e Review of Systems Narrative: Cardiovascular: Positive for chest pain radiating to back, left arm pain, and shortness of breath Extremities: Positive for leg swelling Musculoskeletal: Right foot toe damage, history of shattered tip of big toe PFSH ED PFSH: Medical History Anxiety Moderate major depression Left lateral knee pain Pain, joint, foot, right Morbid obesity with BMI of 40.0-44.9, adult Diabetes mellitus type 2 in obese GERD (gastroesophageal reflux disease) HTN (hypertension) HLD (hyperlipidemia) CAD (coronary artery disease) CABG x5 vessels 2013, Multiple stents, rt RCA stent placement Surgical History History of open heart surgery CABG x5 vessels in 2013 H/O left knee surgery 1986 Flannery's cyst S/P right coronary artery (RCA) stent placement Family History Father Hypertension Grandmother Stroke Social History Smoking and tobacco/nicotine status: former use of tobacco/nicotine Alcohol intake: current Alcohol intake frequency: few times a week Alcohol type: beer Substance/Drug Use: former Physical Exam Const: COMMON NORMALS: no acute distress GENERAL APPEARANCE: cooperative; not frail appearing HENMT: COMMON NORMALS: normocephalic, atraumatic and Normal external nose present HEAD & SCALP: normocephalic and atraumatic FACE & SINUS: normal facial exam and face symmetric NOSE: Normal external nose present Eye: COMMON NORMALS: Equal, round and reactive pupils present and EOMs intact bilaterally PUPIL: Yes Equal, round and reactive pupils present Neck/C-Spine: GENERAL: Yes trachea midline Chest: CHEST: Yes Symmetrical chest wall rise Resp: COMMON NORMALS: normal respiratory effort, No retractions, No use of accessory muscles and clear to auscultation bilaterally AUSCULTATION: clear to auscultation bilaterally Cardio: COMMON NORMALS: regular rate and regular rhythm RATE: regular rate RHYTHM: regular rhythm GI: COMMON NORMALS: Normal to inspection, nondistended, normoactive bowel sounds present Extremity: COMMON NORMALS: no pedal edema Neuro: DOMO COMA SCALE: document GCS findings Domo coma scale eye opening: Spontaneous Dom[place] coma scale verbal response: Orientated [place] coma scale motor response: [place] coma scale total score: 15 SENSORY EXAM: Yes extremities (intact) Psych: COMMON NORMALS: speech normal SPEECH: Yes normal speech Skin: COMMON NORMALS: no rashes or lesions noted GENERAL SKIN EXAM: no rashes or lesions noted Course Vital Signs: Vital signs: Vital Signs Temperature 97.6 F 04/20/25 05:47 Pulse Rate 65 04/20/25 11:16 Respiratory Rate 20 H 04/20/25 10:53 Blood Pressure 126/74 04/20/25 11:16 Pulse Oximetry 95 04/20/25 11:16 Oxygen Delivery Me thod Room Air 04/20/25 11:23 MDM - Chest Pain Medical Decision Making 55-year-old male patient with a significant history of coronary disease. Status post CABG and multiple stent placements. Who presents with chest discomfort and shortness of breath. EKG timed 0539, read at 0541 shows a sinus rhythm with normal axis normal intervals, rate of 60, and no ST elevation. CBC is normal. Other laboratories pending. He will be checked out at shift change to the oncoming physician. Lab Data 04/20/25 05:47 04/20/25 06:05 Radiology Impressions Chest X-Ray 04/20/25 05:37 IMPRESSION: Cardiomegaly without evidence of failure. Laboratory Results WBC 10.41 10^3/uL (3.29-11.43) 04/20/25 05:47 RBC 5.25 10^6/uL (3.85-5.65) 04/20/25 05:47 Hgb 15.50 g/dL (11.27-16.99) 04/20/25 05:47 Hct 45.9 % (37-53) 04/20/25 05:47 MCV 87.4 fl (82-101) 04/20/25 05:47 MCH 29.5 pg (27-33) 04/20/25 05:47 MCHC 33.8 g/dL (30-55) 04/20/25 05:47 RDW 13.2 % (12.1-15.1) 04/20/25 05:47 Plt Count 185 10^3/cmm (157-399) 04/20/25 05:47 MPV 11.3 fL (7.4-10.4) H 04/20/25 05:47 Neut % (Auto) 69.7 % 04/20/25 05:47 Lymph % (Auto) 20.0 % 04/20/25 05:47 [place] % (Auto) 8.1 % 04/20/25 05:47 Eos % (Auto) 0.9 % 04/20/25 05:47 Baso % (Auto) 0.7 % 04/20/25 05:47 Neut # (Auto) 7.27 10^3/uL (1.8-7.7) 04/20/25 05:47 Lymph # (Auto) 2.1 10^3/uL (0.8-4.8) 04/20/25 05:47 [place] # (Auto) 0.8 10^3/uL (0.2-0.9) 04/20/25 05:47 Eos # (Auto) 0.1 10^3/uL (0.0-0.8) 04/20/25 05:47 Baso # (Auto) 0.1 10^3/uL (0.0-0.1) 04/20/25 05:47 Nucleated RBC % (auto) 0 % 04/20/25 05:47 Nucleated RBCs # 0.0 /100WBC 04/20/25 05:47 D-Dimer 0.54 ug/mLFEU (0-0.59) 04/20/25 06:05 Sodium 136 mmol/L (136-145) 04/20/25 06:05 Potassium 4.0 mmol/L (3.5-5.1) 04/20/25 06:05 Chloride 98 mmol/L (98-107) 04/20/25 06:05 Carbon Dioxide 23 mmol/L (22-29) 04/20/25 06:05 Anion Gap 19.0 (5-19) 04/20/25 06:05 BUN 13 mg/dL (6-20) 04/20/25 06:05 Creatinine 0.7 mg/dL (0.7-1.2) 04/20/25 06:05 GFR Calculation 117.1 mL/min (90-130) 04/20/25 06:05 Glucose 138 mg/dL (65-115) H 04/20/25 06:05 Calculated Osmolality 284 mOsm/kg (285-295) L 04/20/25 06:05 Calcium 9.3 mg/dL (8.5-10.5) 04/20/25 06:05 Total Bilirubin 0.5 mg/dL (0.15-1.2) 04/20/25 06:05 AST 16 U/L (0-40) 04/20/25 06:05 ALT 20 U/L (0-41) 04/20/25 06:05 Alkaline Phosphatase 80 U/L (40-130) 04/20/25 06:05 Troponin T Baseline 14 ng/L (0-15) 04/20/25 06:05 Troponin T 120 Minute 12.51 ng/L (0-15) 04/20/25 08:20 Delta Troponin T -1.49 ABS# (0-10) L 04/20/25 08:20 NT-Pro-B Natriuret Pep 329 pg/mL (0-125) H 04/20/25 06:05 Total Protein 6.9 g/dL (6.6-8.7) 04/20/25 06:05 Albumin 4.6 g/dL (3.5-5.2) 04/20/25 06:05 Globulin 2.3 g/dL (1.3-4.6) 04/20/25 06:05 Discharge Plan Discharge Patient Disposition: Placed in Observation Admit Provider: Cristal Thomas Clinical Impression: Unstable angina pectoris, Diabetes mellitus type 2 in obese CAD (coronary artery disease) Qualifiers: Coronary Disease-Associated Artery/Lesion type: bypass graft, autologous vein Associated angina: without angina Qualified Code(s): I25.810 - Atherosclerosis of coronary artery bypass graft(s) without angina pectoris Sign Out Sign Out Data: Patient Sign Out occurred on 04/20/25 at 06:21. Patient's care was discussed, and care was transferred from Francesco Harris DO to Brock Sherwood DO. Coding Level of Care Code ED Hire Car Driver for Chg Fwd Heart Score HEART Score Components History: Moderately Suspicious EKG: Non-specific Changes Age: 45-64 yrs Risk Factors: >/=3 Risk Factors HEART Score RESULT HEART Score: 5 Documented by User: Brock Sherwood DO 04/20/25 09:44 HPI - Chest Pain General: Chief Complaint: Chest Pain Stated Complaint: CP pain in l arm Time Seen by Provider: 04/20/25 05:43 Related Data Home Medications ?Medication ?Instructions ?Recorded ?Confirmed aspirin 81 mg tablet,delayed 81 mg PO QPM 04/08/22 04/20/25 release potassium gluconate 595 mg (99 mg) 1,785 mg PO QAM 10/11/22 04/20/25 tablet doxycycline hyclate 100 mg capsule 100 mg PO BID 04/20/25 04/20/25 Previous Rx's ?Medication ?Instructions ?Recorded diabetic shoes with 3 inserts #1 ea 08/08/23 medial steel unloader brace, left knee #1 ea 11/22/23 metoprolol tartrate 50 mg tablet 50 mg PO BID blood pressure #180 01/25/24 tabs nitroglycerin 0.4 mg sublingual 0.4 mg sublingual Q5M PRN Chest 01/25/24 tablet Pain #25 tabs fluticasone propionate 50 2 spray intranasal DAILY #16 grams 10/11/24 mcg/actuation nasal spray,suspension (Flonase Allergy Relief) furosemide 20 mg tablet 20 mg PO BID #180 tabs 02/11/25 buspirone 15 mg tablet 15 mg PO BID #180 tabs 02/12/25 clopidogrel 75 mg tablet 75 mg PO QAM circulation #90 tabs 02/12/25 lisinopril 20 mg tablet 20 mg PO BEDTIME #90 tabs 02/12/25 omeprazole 40 mg capsule,delayed 40 mg PO DAILY #90 caps 02/12/25 release sertraline 50 mg tablet 100 mg (2 x 50 mg) PO DAILY mental 03/18/25 health #90 tabs metformin 1,000 mg tablet 1,000 mg PO BID new diabetes #180 04/02/25 tabs atorvastatin 40 mg tablet See Rx Instructions .Route 04/18/25 .COMPLEX #90 tabs Allergies Allergy/AdvReac Type Severity Reaction Status Date / Time isosorbide (From Imdur) AdvReac Severe ADR-Headach Verified 04/15/25 10:00 e PFSH ED PFSH: Medical History Anxiety Moderate major depression Left lateral knee pain Pain, joint, foot, right Morbid obesity with BMI of 40.0-44.9, adult Diabetes mellitus type 2 in obese GERD (gastroesophageal reflux disease) HTN (hypertension) HLD (hyperlipidemia) CAD (coronary artery disease) CABG x5 vessels 2013, Multiple stents, rt RCA stent placement Surgical History History of open heart surgery CABG x5 vessels in 2013 H/O left knee surgery 1986 Flannery's cyst S/P right coronary artery (RCA) stent placement Family History Father Hypertension Grandmother Stroke Social History Smoking and tobacco/nicotine status: former use of tobacco/nicotine Alcohol intake: current Alcohol intake frequency: few times a week Alcohol type: beer Substance/Drug Use: former Physical Exam Neuro: DOMO COMA SCALE: document GCS findings [place] coma scale total score: 15 Course Vital Signs: Vital signs: Vital Signs Temperature 97.6 F 04/20/25 05:47 Pulse Rate 65 04/20/25 11:16 Respiratory Rate 20 H 04/20/25 10:53 Blood Pressure 126/74 04/20/25 11:16 Pulse Oximetry 95 04/20/25 11:16 Oxygen Delivery Me thod Room Air 04/20/25 11:23 MDM - Chest Pain Medical Decision Making 55-year-old male patient with a significant history of coronary disease. Status post CABG and multiple stent placements. Who presents with chest discomfort and shortness of breath. EKG timed 0539, read at 0541 shows a sinus rhythm with normal axis normal intervals, rate of 60, and no ST elevation. CBC is normal. Other laboratories pending. He will be checked out at shift change to the oncoming physician. Patient denies having chest pain at this time he has been having escalating angina with episodes of chest pain with exertion lasting a couple hours over the last 2 weeks this morning began shortly after he had gotten out of bed. This resolved now. He has not taken any nitro for it he has known history of coronary disease and September 2022 had occluded bypass graft but previous stents were patent. Prior to that he had a positive stress test. He believes he had a subsequent angiography done at [facility] possibly within the last year. We are getting old records on that. EKG does not show any acute changes troponins have stayed normal. However given his history his risk factors and the escalating pain now having pain while at rest we will place patient in the hospital on IV nitro. Have discussed with Dr. Cooper consult cardiology, admit to hospitalist service Medical Records I reviewed the patient's medical records. Lab Data I reviewed the patient's lab results. 04/20/25 05:47 04/20/25 06:05 Radiology Impressions Chest X-Ray 04/20/25 05:37 IMPRESSION: Cardiomegaly without evidence of failure. Laboratory Results WBC 10.41 10^3/uL (3.29-11.43) 04/20/25 05:47 RBC 5.25 10^6/uL (3.85-5.65) 04/20/25 05:47 Hgb 15.50 g/dL (11.27-16.99) 04/20/25 05:47 Hct 45.9 % (37-53) 04/20/25 05:47 MCV 87.4 fl (82-101) 04/20/25 05:47 MCH 29.5 pg (27-33) 04/20/25 05:47 MCHC 33.8 g/dL (30-55) 04/20/25 05:47 RDW 13.2 % (12.1-15.1) 04/20/25 05:47 Plt Count 185 10^3/cmm (157-399) 04/20/25 05:47 MPV 11.3 fL (7.4-10.4) H 04/20/25 05:47 Neut % (Auto) 69.7 % 04/20/25 05:47 Lymph % (Auto) 20.0 % 04/20/25 05:47 [place] % (Auto) 8.1 % 04/20/25 05:47 Eos % (Auto) 0.9 % 04/20/25 05:47 Baso % (Auto) 0.7 % 04/20/25 05:47 Neut # (Auto) 7.27 10^3/uL (1.8-7.7) 04/20/25 05:47 Lymph # (Auto) 2.1 10^3/uL (0.8-4.8) 04/20/25 05:47 [place] # (Auto) 0.8 10^3/uL (0.2-0.9) 04/20/25 05:47 Eos # (Auto) 0.1 10^3/uL (0.0-0.8) 04/20/25 05:47 Baso # (Auto) 0.1 10^3/uL (0.0-0.1) 04/20/25 05:47 Nucleated RBC % (auto) 0 % 04/20/25 05:47 Nucleated RBCs # 0.0 /100WBC 04/20/25 05:47 D-Dimer 0.54 ug/mLFEU (0-0.59) 04/20/25 06:05 Sodium 136 mmol/L (136-145) 04/20/25 06:05 Potassium 4.0 mmol/L (3.5-5.1) 04/20/25 06:05 Chloride 98 mmol/L (98-107) 04/20/25 06:05 Carbon Dioxide 23 mmol/L (22-29) 04/20/25 06:05 Anion Gap 19.0 (5-19) 04/20/25 06:05 BUN 13 mg/dL (6-20) 04/20/25 06:05 Creatinine 0.7 mg/dL (0.7-1.2) 04/20/25 06:05 GFR Calculation 117.1 mL/min (90-130) 04/20/25 06:05 Glucose 138 mg/dL (65-115) H 04/20/25 06:05 Calculated Osmolality 284 mOsm/kg (285-295) L 04/20/25 06:05 Calcium 9.3 mg/dL (8.5-10.5) 04/20/25 06:05 Total Bilirubin 0.5 mg/dL (0.15-1.2) 04/20/25 06:05 AST 16 U/L (0-40) 04/20/25 06:05 ALT 20 U/L (0-41) 04/20/25 06:05 Alkaline Phosphatase 80 U/L (40-130) 04/20/25 06:05 Troponin T Baseline 14 ng/L (0-15) 04/20/25 06:05 Troponin T 120 Minute 12.51 ng/L (0-15) 04/20/25 08:20 Delta Troponin T -1.49 ABS# (0-10) L 04/20/25 08:20 NT-Pro-B Natriuret Pep 329 pg/mL (0-125) H 04/20/25 06:05 Total Protein 6.9 g/dL (6.6-8.7) 04/20/25 06:05 Albumin 4.6 g/dL (3.5-5.2) 04/20/25 06:05 Globulin 2.3 g/dL (1.3-4.6) 04/20/25 06:05 All radiology interpretation(s) finalized by discharge EKG Data EKG 2: I personally reviewed and interpreted this EKG as follows: Interpretation: EKG 04/20/2025 7:26 AM sinus bradycardia no acute ST changes. Q waves in 2 3 aVF as well as 1 and aVL. Compared to previous EKGs no acute changes Discharge Plan Discharge Patient Disposition: Placed in Observation Admit Provider: Cristal Thomas Clinical Impression: Unstable angina pectoris, Diabetes mellitus type 2 in obese CAD (coronary artery disease) Qualifiers: Coronary Disease-Associated Artery/Lesion type: bypass graft, autologous vein Associated angina: without angina Qualified Code(s): I25.810 - Atherosclerosis of coronary artery bypass graft(s) without angina pectoris Sign Out Sign Out Data: Patient Sign Out occurred on 04/20/25 at 06:21. Patient's care was discussed, and care was transferred from Francesco Harris DO to Brock Sherwood DO. Coding Level of Care Code ED Hire Car Driver for Chg Fwd Heart Score HEART Score Components Troponin: Baseline Trop <16 ng/L HEART Score RESULT HEART Score: 5
[2025-04-20 05:55] LABS: Hematocrit 45.9 % (37-53); Hemoglobin 15.50 g/dL (11.27-16.99); Mean Corpuscular HGB Conc 33.8 g/dL (30-55); Mean Corpuscular Hemoglobin 29.5 pg (27-33); Mean Corpuscular Volume 87.4 fl (82-101); Nucleated Red Blood Cells % 0 %; Platelet Count 185 10^3/cmm (157-399); Red Blood Count 5.25 10^6/uL (3.85-5.65); White Blood Count 10.41 10^3/uL (3.29-11.43)
[2025-04-20 06:31] LABS: Troponin(5th) Baseline 14 ng/L (0-15)
[2025-04-20 06:43] LABS: Alanine Aminotransferase 20 U/L (0-41); Albumin Level 4.6 g/dL (3.5-5.2); Alkaline Phosphatase 80 U/L (40-130); Anion Gap 19.0 (5-19); Aspartate Amino Transferase 16 U/L (0-40); Blood Urea Nitrogen 13 mg/dL (6-20); Calcium 9.3 mg/dL (8.5-10.5); Carbon Dioxide 23 mmol/L (22-29); Chloride 98 mmol/L (98-107); Creatinine Clr Calc Pharmacy 160.4658; Globulin 2.3 g/dL (1.3-4.6); Glucose 138 mg/dL (65-115); NT Pro B Type Natriuretic Pept 329 pg/mL (0-125); Osmolality Calculated 284 mOsm/kg (285-295); Potassium 4.0 mmol/L (3.5-5.1); Sodium 136 mmol/L (136-145); Total Protein 6.9 g/dL (6.6-8.7)
--- NOTE | 2025-04-20 07:26 | ECG_ITS ---
[facility] Test Date: 2025-04-20 Pat Name: Earl Mckeon Department: Room: Gender: Male Chocolatier: : 1970 Requested By: Francesco Brown Order Number: [id number] Heath MD: Any Cooper M.D. Measurements Intervals [place] Rate: 56 P: 26 NV: 173 QRS: 18 QRSD: 101 T: 132 QT: 456 QTc: 444 Interpretive Statements SINUS BRADYCARDIA POSSIBLE LATERAL MYOCARDIAL INFARCTION , OF INDETERMINATE AGE [30 ms Q WAVE IN I/aVL/V5/V6] Compared to ECG 04/20/2025 05:39:03 Myocardial infarct finding now present Sinus rhythm no longer present T-wave abnormality no longer present Electronically Signed On 04-20-2025 20:18:47 WEATHERSEAL TECHNICIAN by Any Cooper M.D. [email or web address]
[2025-04-20 09:03] LABS: Troponin 5 2HR 12.51 ng/L (0-15)
[2025-04-20 09:04] LABS: Troponin 5 2HR Delta -1.49 ABS# (0-10)
[2025-04-20] MEDS: heparin 5,000 unit/mL INJ 1 mL IVP (09:56)
[2025-04-20] MEDS: heparin drip 25,000 UNIT/500 ML PREMIX 36 UNIT IV (09:58)
--- NOTE | 2025-04-20 11:15 | ECG_ITS ---
[facility]: [facility]25[facility]20 Pat Name: Earl Mckeon Department: Room: [facility] Gender: Male Protective Signal Operations Supervisor: : 1970 Requested By: Francesco Brown Order Number: [id number] Heath MD: Any Cooper M.D. Measurements Intervals [place] Rate: 58 P: 25 OK: 174 QRS: 26 QRSD: 99 T: 134 QT: 448 QTc: 444 Interpretive Statements SINUS BRADYCARDIA POSSIBLE INFERIOR MYOCARDIAL INFARCTION , PROBABLY OLD [30 ms Q WAVE IN II/aVF] Compared to ECG 04/20/2025 07:26:[address]-T changes No significant changes Electronically Signed On 04-20-2025 20:18:29 DUMPMAN by Any Cooper M.D. [email or web address]
[2025-04-20 12:06] LABS: Troponin 5 6HR 10.93 ng/L (0-15); Troponin 5 6HR Delta -3.07 ng/L (0-12)
--- NOTE | 2025-04-20 13:55 | PM.HP ---
Providers/Chief Complaint Admitting Physician: Cristal Thomas MD Primary Care Provider: Prem Garcia MD Chief Complaint: CP pain in l arm dizzy History of Present Illness Earl Mckeon is a 55 year old male with a past medical history of coronary artery disease, reports last stents placed at [facility] in May 2023, presenting to the hospital with chest pain today. States he has been having intermittent chest pain for a while but today he had squeezing chest pain located in the middle of his chest radiating into his arms. Also reported into the spine. No dyspnea. Saturating well on room air. Denies any orthopnea PND or associated symptoms of any nausea or vomiting. Denies any fever chills cough recently. Review of Systems General: Reports: 10 or more systems reviewed and unremarkable except in HPI and below Const: Denies: fever(s), chills or body aches Eyes: Denies: change in vision, blurry vision or photophobia ENMT: Reports: hoarseness; Denies: throat pain, enlarged tonsils, odynophagia or nasal congestion Card: Denies: chest pain, palpitations, irregular heart rhythm, edema, swelling of feet/ankles, lightheadedness, pre-syncope, dyspnea on exertion or orthopnea Resp: Denies: dyspnea, productive cough, non-productive cough, wheezing, stridor, pain on inspiration, change in phlegm color, hemoptysis or chest congestion GI: Denies: abdominal pain, nausea, vomiting, hematemesis, coffee ground emesis, dysphagia, heartburn, diarrhea, constipation, GI cramping, change in stool character, hematochezia or melena : Denies: flank pain, dysuria, urinary frequency, urinary urgency, urinary hesitancy or hematuria Musc: Denies: neck pain, back pain, extremity pain, joint swelling, joint warmth or deformity Neuro: Denies: headache(s), numbness in extremities, weakness in extremities, sensory changes, difficulty walking, frequent falls, dizziness, vertigo, behavioral changes, Slurred speech present or seizure-like activity Psych: Denies: anxiety, depression, suicidal ideation or homicidal ideation Endo: Denies: polyuria, polydipsia, tired all the time, cold intolerance or hot flashes Juan Manuel/Lymph: Denies: easy bruising or easy bleeding Medications/Allergies Home Medications ?Medication ?Instructions ?Recorded ?Confirmed ?Last Taken ?Type aspirin 81 mg tablet,delayed 81 mg PO QPM 04/08/22 04/20/25 04/19/25 19:00 History release potassium gluconate 595 mg (99 mg) 1,785 mg PO QAM 10/11/22 04/20/25 Unknown History tablet diabetic shoes with 3 inserts #1 ea 08/08/23 04/20/25 Unknown Rx medial instrumental music teacher brace, left knee #1 ea 11/22/23 04/20/25 Unknown Rx metoprolol tartrate 50 mg tablet 50 mg PO BID blood pressure #180 01/25/24 04/20/25 Unknown Rx tabs nitroglycerin 0.4 mg sublingual 0.4 mg sublingual Q5M PRN Chest 01/25/24 04/20/25 Unknown Rx tablet Pain #25 tabs fluticasone propionate 50 2 spray intranasal DAILY #16 grams 10/11/24 04/20/25 Unknown Rx mcg/actuation nasal spray,suspension (Flonase Allergy Relief) furosemide 20 mg tablet 20 mg PO BID #180 tabs 02/11/25 04/20/25 Unknown Rx buspirone 15 mg tablet 15 mg PO BID #180 tabs 02/12/25 04/20/25 04/20/25 05:00 Rx clopidogrel 75 mg tablet 75 mg PO QAM circulation #90 tabs 02/12/25 04/20/25 04/20/25 05:00 Rx lisinopril 20 mg tablet 20 mg PO BEDTIME #90 tabs 02/12/25 04/20/25 04/19/25 20:00 Rx omeprazole 40 mg capsule,delayed 40 mg PO DAILY #90 caps 02/12/25 04/20/25 04/20/25 05:00 Rx release sertraline 50 mg tablet 100 mg (2 x 50 mg) PO DAILY mental 03/18/25 04/20/25 04/20/25 05:00 Rx health #90 tabs metformin 1,000 mg tablet 1,000 mg PO BID new diabetes #180 04/02/25 04/20/25 04/20/25 05:00 Rx tabs atorvastatin 40 mg tablet See Rx Instructions .Route 04/18/25 04/20/25 04/18/25 19:00 Rx .COMPLEX #90 tabs doxycycline hyclate 100 mg capsule 100 mg PO BID 04/20/25 04/20/25 04/20/25 05:00 History Allergies Allergy/AdvReac Type Severity Reaction Status Date / Time isosorbide (From Imdur) AdvReac Severe ADR-Headach Verified 04/15/25 10:00 e PFSH Acute PFSH: Medical History (Updated 04/20/25 @ 14:32 by Any Cooper MD) Anxiety Moderate major depression Left lateral knee pain Pain, joint, foot, right Morbid obesity with BMI of 40.0-44.9, adult Diabetes mellitus type 2 in obese Gastroesophageal reflux disease without esophagitis Primary hypertension Mixed hyperlipidemia CAD (coronary artery disease) CABG x5 vessels 2013, Multiple stents, rt RCA stent placement Surgical History History of open heart surgery CABG x5 vessels in 2013 H/O left knee surgery 1986 Flannery's cyst S/P right coronary artery (RCA) stent placement Family History Father Hypertension Grandmother Stroke Social History Smoking and tobacco/nicotine status: former use of tobacco/nicotine Alcohol intake: current Alcohol intake frequency: few times a week Alcohol type: beer Substance/Drug Use: former Vitals/I&O/Wt Last Vital Signs Temp 97.6 F 04/20/25 05:47 Pulse 65 04/20/25 11:16 Resp 20 H 04/20/25 10:53 BP 126/74 04/20/25 11:16 Pulse Ox 95 04/20/25 11:16 O2 Del Method Room Air 04/20/25 10:53 04/19/25 04/20/25 04/20/25 22:59 06:59 14:59 Intake Total 0 / 0 240 / 240 Output Total 500 / 500 Balance 0 / 0 -260 / -260 Weight last 48 hrs Weight 127.006 kg Weight 128.367 kg Physical Exam Narrative: General: No acute distress, AO x3 HEENT: PERRLA, pupils bilaterally equal and reactive, pallors not present Chest: Normal vesicular breath sounds, no added sounds, equal good air entry bilaterally CVS: S1-S2 regular, no murmurs, no tachycardia, no gallops, no rubs Abdomen: Soft, nontender, no organomegaly, bowel sounds present Neuro: No focal deficits, no facial deformity, AO x3, power 5/5 in all limbs Data 04/20/25 05:47 04/20/25 06:05 Other Labs: Radiology Impressions Chest X-Ray 04/20/25 05:37 IMPRESSION: Cardiomegaly without evidence of failure. Laboratory Results WBC 10.41 10^3/uL (3.29-11.43) 04/20/25 05:47 RBC 5.25 10^6/uL (3.85-5.65) 04/20/25 05:47 Hgb 15.50 g/dL (11.27-16.99) 04/20/25 05:47 Hct 45.9 % (37-53) 04/20/25 05:47 MCV 87.4 fl (82-101) 04/20/25 05:47 MCH 29.5 pg (27-33) 04/20/25 05:47 MCHC 33.8 g/dL (30-55) 04/20/25 05:47 RDW 13.2 % (12.1-15.1) 04/20/25 05:47 Plt Count 185 10^3/cmm (157-399) 04/20/25 05:47 MPV 11.3 fL (7.4-10.4) H 04/20/25 05:47 Neut % (Auto) 69.7 % 04/20/25 05:47 Lymph % (Auto) 20.0 % 04/20/25 05:47 [place] % (Auto) 8.1 % 04/20/25 05:47 Eos % (Auto) 0.9 % 04/20/25 05:47 Baso % (Auto) 0.7 % 04/20/25 05:47 Neut # (Auto) 7.27 10^3/uL (1.8-7.7) 04/20/25 05:47 Lymph # (Auto) 2.1 10^3/uL (0.8-4.8) 04/20/25 05:47 [place] # (Auto) 0.8 10^3/uL (0.2-0.9) 04/20/25 05:47 Eos # (Auto) 0.1 10^3/uL (0.0-0.8) 04/20/25 05:47 Baso # (Auto) 0.1 10^3/uL (0.0-0.1) 04/20/25 05:47 Nucleated RBC % (auto) 0 % 04/20/25 05:47 Nucleated RBCs # 0.0 /100WBC 04/20/25 05:47 APTT 81.7 SECONDS (23.9-36.7) H 04/20/25 16:09 D-Dimer 0.54 ug/mLFEU (0-0.59) 04/20/25 06:05 Sodium 136 mmol/L (136-145) 04/20/25 06:05 Potassium 4.0 mmol/L (3.5-5.1) 04/20/25 06:05 Chloride 98 mmol/L (98-107) 04/20/25 06:05 Carbon Dioxide 23 mmol/L (22-29) 04/20/25 06:05 Anion Gap 19.0 (5-19) 04/20/25 06:05 BUN 13 mg/dL (6-20) 04/20/25 06:05 Creatinine 0.7 mg/dL (0.7-1.2) 04/20/25 06:05 GFR Calculation 117.1 mL/min (90-130) 04/20/25 06:05 Glucose 138 mg/dL (65-115) H 04/20/25 06:05 Calculated Osmolality 284 mOsm/kg (285-295) L 04/20/25 06:05 Calcium 9.3 mg/dL (8.5-10.5) 04/20/25 06:05 Total Bilirubin 0.5 mg/dL (0.15-1.2) 04/20/25 06:05 AST 16 U/L (0-40) 04/20/25 06:05 ALT 20 U/L (0-41) 04/20/25 06:05 Alkaline Phosphatase 80 U/L (40-130) 04/20/25 06:05 Troponin T Baseline 14 ng/L (0-15) 04/20/25 06:05 Troponin T 120 Minute 12.51 ng/L (0-15) 04/20/25 08:20 Delta Troponin T -1.49 ABS# (0-10) L 04/20/25 08:20 Troponin T Hi Sens 6Hr 10.93 ng/L (0-15) 04/20/25 11:35 Troponin T Hi Sens 6Hr Delta -3.07 ng/L (0-12) L 04/20/25 11:35 NT-Pro-B Natriuret Pep 329 pg/mL (0-125) H 04/20/25 06:05 Total Protein 6.9 g/dL (6.6-8.7) 04/20/25 06:05 Albumin 4.6 g/dL (3.5-5.2) 04/20/25 06:05 Globulin 2.3 g/dL (1.3-4.6) 04/20/25 06:05 A&P Assessment and plan 1. Chest pain: 55-year-old male with a past medical history of coronary artery disease currently presenting to the hospital with chest pain EKG without any acute ST-T wave changes. Troponin series without significant delta. D-dimer at 0.54, unlikely PE. Patient does not have any current symptoms of dyspnea or hypoxia. Chest x-ray without any consolidation. Cardiology service has been consulted from the emergency room. He was started on a heparin drip per their recommendations from the emergency room. We will continue this for now. Continue home doses of aspirin, Plavix, Lasix 20 mg p.o. twice daily. Nitropatch 0.5 inch topical every 6 hours, may increase if chest pain persists. Reports last stents placed in May 2023 at [facility]. Reportedly patient was undergoing a stress test and due to noted abnormality he was taken to the [facility] right away. Will plan on a Lexiscan stress test tomorrow morning. N.p.o. postmidnight for the same. Plan: DVT prophylaxis: Heparin drip to suffice Full code PDMP PDMP Reviewed: Not Reviewed Attestations Medical Necessity Statement*: Less than 2 midnight stay currently anticipated for stress test tomorrow. Coding Level of Care Code Acute Code for [facility] Fwd Diagnoses Chest pain R07.9
--- NOTE | 2025-04-20 13:56 | USCV_ITS ---
Earl Mckeon Age: 55 Gender: M : 1970 Exam Date: 04/20/2025 18:00 Ordering Phys: Cristal Thomas MD Technologist: Eliel Torres [place] [facility] [place]: chest pain, angina BP: 140 / 94 HR: 77 Rhythm: Sinus Technical Quality: Adequate MEASUREMENTS (Male / Female) Normal Values 2D ECHO LV Diastolic Diameter PLAX 4.3 cm 4.2 - 5.9 / 3.9 - 5.3 cm IVS Diastolic Thickness 1.2 cm 0.6 - 1.0 / 0.6 - 0.9 cm IVS Systolic Thickness 1.6 cm LVPW Diastolic Thickness 1.0 cm 0.6 - 1.0 / 0.6 - 0.9 cm LVPW Systolic Thickness 1.8 cm LVOT Diameter 2.1 cm LV Ejection Fraction 2D Teich 69.3 % LV Ejection Fraction MOD 4C 73.5 % LV Ejection Fraction MOD 2C 73.5 % LV Ejection Fraction 2C AL 73.9 % LA Diameter 4.1 cm RA Systolic Volume 4C AL 71.5 ml RA Systolic Volume 4C MOD 70.3 ml LA Sys Volume AL 60.3 cm cubed LA Sys Volume Index AL 23.6 cm cubed/m squared Aorta at Sinotubular Diameter 2.7 cm M-MODE LA Ao Ratio MM 1.3 AV Cusp Separation MM 1.9 cm DOPPLER AV Peak Velocity 132.0 cm/s LVOT Peak Velocity 136.0 cm/s AV Area Cont Eq vti 3.5 cm squared AV Area Cont Eq pk 3.5 cm squared MV Peak Velocity 88.0 cm/s MV Area PHT 5.0 cm squared Mitral E to A Ratio 0.9 TV Peak Velocity 150.0 cm/s TR Peak Velocity 159.0 cm/s TR Peak Gradient 10.1 mmHg TR Mean Velocity 143.0 cm/s TR Mean Gradient 8.3 mmHg TR Velocity Time Integral 47.0 cm PV Peak Velocity 140.0 cm/s RV Ejection Time 0.2 s FINDINGS Left Ventricle Normal LV size and ejection fraction of 73%. Dyskinetic basal inferior wall segment. Mild concentric left trickle hypertrophy.Grade I/IV diastolic dysfunction (abnormal relaxation filling pattern), normal to mildly elevated filling pressures. Right Ventricle Normal right ventricular size and systolic function. Right Atrium Normal right atrial size. Left Atrium Normal left atrial size. IA Septum The interatrial septum appears to be intact Mitral Valve Structurally normal mitral valve. Aortic Valve No gross abnormalities noted Tricuspid Valve Trace tricuspid valve regurgitation. Pulmonic Valve Mild pulmonary valve regurgitation. Pericardium No pericardial effusion. Aorta Normal aortic annulus size. IVC Inferior vena cava not visualized. CONCLUSIONS Normal LV size and ejection fraction of 73%. Dyskinetic basal inferior wall segment. Mild concentric left trickle hypertrophy.Grade I/IV diastolic dysfunction (abnormal relaxation filling pattern), normal to mildly elevated filling pressures. Trace tricuspid valve regurgitation. Estimated pulmonary artery peak systolic pressure possibly within normal limits Mild pulmonary valve regurgitation. There is no pericardial effusion. No similar previous studies are available for comparison Dr Any Cooper MD [facility] (Electronically Signed) Final Date: 20 April 2025 19:40 S
--- NOTE | 2025-04-20 13:59 | ECG_ITS ---
prollie Test Date: 2025-04-21 Pat Name: Earl Mckeon Department: Room: [facility] Gender: Male Head Housekeeper: : 1970 Requested By: Cristal Thomas Order Number: [id number] Heath MD: Any Cooper M.D. Interpretive Statements Lung unchanged pre/post procedure; Lung unchanged pre/post procedure; Intraprocedure shortess of breath; Intraprocedure shortess of breath; Symptoms resoled by discharge PROCEDURE: At the baseline, the EKG revealed sinus bradycardia with poor R wave progression . Nonspecific T wave change. The baseline heart was 59 bpm with a blood pressue of 118/78 mm of Hg Lexiscan was infused over a period of 20 seconds. A total of 0.4 milligrams of Lexiscan was infused. The stress phase was continued for a total of 5 minutes. Heart rate at the end of the stress phase was 72 bpm with a blood pressure 113/73 mm of Hg. The EKG at the peak infusion revealed no significant changes. Sestamibi was injected 20 seconds after the Lexiscan infusion. Heart rate at the end of the recovery phase was 72 bpm with a blood pressure of 124/71 mm of Hg. CONCLUSION: 1. No significant EKG changes with the LexiScan infusion 2. No LexiScan induced chest pain or cardiac arrhythmia 3. Normal blood pressure and heart rate response 4. Sestamibi/sestamibi perfusion scan pending; see separate report. Electronically Signed On 04-21-2025 18:29:48 RECORDS ADMINISTRATOR by Any Cooper M.D. [email or web address]
--- NOTE | 2025-04-20 14:23 | PM.CONSULT ---
Providers/Reason For Consult Consulting Physician/Specialty*: JAKE Cooper MD/cardiology Reason for Consult*: Patient with a history of pulmonary disease, status post coronary bypass surgery, status post multiple PCI's presenting with chest pain Requesting Physician: Dr Maile Thomas Attending Physician: Cristal Thomas MD Primary Care Provider: Prem Garcia MD History of Present Illness History of Present Illness Earl Mckeon is a 55 year old male with a history of atherosclerotic heart disease, coronary bypass surgery and multiple PCI's, he is presenting with complaints of increasing episodes of chest pain over the last 2 weeks. Cardiology consult is requested for further cardiac evaluation recommendations This patient is a poor historian and is poorly compliant with her medical follow-up. He had a question about three-vessel coronary bypass surgery in 2011. He had a RAMIREZ to the LAD, saphenous venous graft to the obtuse marginal artery and another venous graft to the right coronary artery. His previous angiogram revealed total occlusion of the venous grafts. The RAMIREZ to the LAD was found to be atretic. The most recent coronary angiogram was done in September 2022. He was found to have patent stents in the LAD, RCA and circumflex artery. Mild diffuse disease was noted. The RAMIREZ to the LAD was found to be atretic. It was opted to treat him medically at that time. According to the patient, he has been doing okay up until 2 weeks ago when he started having chest pain. He describes the pain as a dull aching type of pain in the left side of the chest, radiate to the back and also left arm. Usually he wakes up in the morning with the pain. The intensity of the pain was 2-3/10. The pain gradually subsides. He never took any sublingual nitro. He was scared to take the nitro because of the headache and also the fact that the pain was not too bad. He decided to come to the hospital early this morning because of the insistence of his girlfriend. He has no associated shortness of breath. No nausea or vomiting. No other associated symptoms or radiation of pain. He has a history of high blood pressure, dyslipidemia, GERD and? Reactive airway disease. Review of Systems Narrative: CONSTITUTIONAL: No fever or chills. EYES: No blurring of vision or other visual disturbances lately. ENT: No hoarseness of voice, auditory disturbances or sore throat. CARDIOVASCULAR: As mentioned above. RESPIRATORY:? Reactive airway disease GASTROINTESTINAL: GERD GENITOURINARY: No dysuria or hematuria. INTEGUMENTARY: No skin rashes or history of skin cancer. NEURO: No transient ischemic attacks or amaurosis. PSYCHIATRIC: No history of psychosis or major depression. HEMATOLOGIC: No bleeding disorders or significant anemia. ENDOCRINE: No history of polyuria or polydipsia. MUSCULOSKELETAL: No recent joint pain or swelling. ALLERGY/IMMUNOLOGY: As mentioned above. Medications/Allergies Home Medications ?Medication ?Instructions ?Recorded ?Confirmed ?Last Taken ?Type aspirin 81 mg tablet,delayed 81 mg PO QPM 04/08/22 04/20/25 04/19/25 19:00 History release potassium gluconate 595 mg (99 mg) 1,785 mg PO QAM 10/11/22 04/20/25 Unknown History tablet diabetic shoes with 3 inserts #1 ea 08/08/23 04/20/25 Unknown Rx medial manager payer brace, left knee #1 ea 11/22/23 04/20/25 Unknown Rx metoprolol tartrate 50 mg tablet 50 mg PO BID blood pressure #180 01/25/24 04/20/25 Unknown Rx tabs nitroglycerin 0.4 mg sublingual 0.4 mg sublingual Q5M PRN Chest 01/25/24 04/20/25 Unknown Rx tablet Pain #25 tabs fluticasone propionate 50 2 spray intranasal DAILY #16 grams 10/11/24 04/20/25 Unknown Rx mcg/actuation nasal spray,suspension (Flonase Allergy Relief) furosemide 20 mg tablet 20 mg PO BID #180 tabs 02/11/25 04/20/25 Unknown Rx buspirone 15 mg tablet 15 mg PO BID #180 tabs 02/12/25 04/20/25 04/20/25 05:00 Rx clopidogrel 75 mg tablet 75 mg PO QAM circulation #90 tabs 02/12/25 04/20/25 04/20/25 05:00 Rx lisinopril 20 mg tablet 20 mg PO BEDTIME #90 tabs 02/12/25 04/20/25 04/19/25 20:00 Rx omeprazole 40 mg capsule,delayed 40 mg PO DAILY #90 caps 02/12/25 04/20/25 04/20/25 05:00 Rx release sertraline 50 mg tablet 100 mg (2 x 50 mg) PO DAILY mental 03/18/25 04/20/25 04/20/25 05:00 Rx health #90 tabs metformin 1,000 mg tablet 1,000 mg PO BID new diabetes #180 04/02/25 04/20/25 04/20/25 05:00 Rx tabs atorvastatin 40 mg tablet See Rx Instructions .Route 04/18/25 04/20/25 04/18/25 19:00 Rx .COMPLEX #90 tabs doxycycline hyclate 100 mg capsule 100 mg PO BID 04/20/25 04/20/25 04/20/25 05:00 History Allergies Allergy/AdvReac Type Severity Reaction Status Date / Time isosorbide (From Imdur) AdvReac Severe ADR-Headach Verified 04/15/25 10:00 e Current Medications Generic Name Dose Route Start Last Admin Trade Name Freq PRN Reason Stop Dose Admin Heparin Sodium/Sodium Chloride 25,000 unit in 500 mls @ 0 mls/hr 04/20/25 09:30 04/20/25 09:58 Heparin Drip IV 14.02 unit/kg/hr CONT DANIELA 36 mls/hr Protocol Administration Per Protocol PFSH Acute PFSH: Medical History Anxiety Moderate major depression Left lateral knee pain Pain, joint, foot, right Morbid obesity with BMI of 40.0-44.9, adult Diabetes mellitus type 2 in obese Gastroesophageal reflux disease without esophagitis Primary hypertension Mixed hyperlipidemia CAD (coronary artery disease) CABG x5 vessels 2013, Multiple stents, rt RCA stent placement Surgical History History of open heart surgery CABG x5 vessels in 2013 H/O left knee surgery 1986 Flannery's cyst S/P right coronary artery (RCA) stent placement Family History Father Hypertension Grandmother Stroke Social History Smoking and tobacco/nicotine status: former use of tobacco/nicotine Alcohol intake: current Alcohol intake frequency: few times a week Alcohol type: beer Substance/Drug Use: former Vitals/I&O/Wt Last Vital Signs Temp 97.6 F 04/20/25 05:47 Pulse 65 04/20/25 11:16 Resp 20 H 04/20/25 10:53 BP 126/74 04/20/25 11:16 Pulse Ox 95 04/20/25 11:16 O2 Del Method Room Air 04/20/25 11:23 04/19/25 04/20/25 04/20/25 22:59 06:59 14:59 Intake Total 0 / 0 240 / 240 Output Total 500 / 500 Balance 0 / 0 -260 / -260 Weight last 48 hrs Weight 280 lb Weight 283 lb Physical Exam Narrative: GENERAL: The patient is alert and oriented times three. Not in any acute distress. Obese HEENT: No significant pallor, icterus or lymphadenopathy.Oral cavity: There are no mucous membrane lesions. NECK: Trachea appears to be central. No masses noted. No JVD or thyromegaly appreciated. RESPIRATORY: Chest is symmetrical. No intercostals muscle retraction or any accessory muscle activation. There is no chest wall tenderness. Breath sounds are heard bilaterally. No rales or rhonchi heard. No evidence of any consolidation. BREASTS: Deferred. HEART: The heart sounds are normal. No S3 or S4. No significant murmurs. No pericardial rub ABDOMEN: No vessel pulsations or distention. No tenderness. No organomegaly appreciated. Bowel sounds are normally heard. : Deferred. RECTAL: Deferred. LYMPHATIC: No lymphadenopathy noted in the neck. EXTREMITIES: No edema or cyanosis. No clubbing. MUSCULOSKELETAL: No acute joint deformities or swelling SKIN: There are no significant rashes or ecchymosis NEUROPSYCHIATRIC: The patient is alert and oriented x3. Appears to be in a good mood. No tremors or rigidity noted. Data 04/20/25 05:47 04/20/25 06:05 Other Labs: Laboratory Last Values WBC 10.41 10^3/uL (3.29-11.43) 04/20/25 05:47 RBC 5.25 10^6/uL (3.85-5.65) 04/20/25 05:47 Hgb 15.50 g/dL (11.27-16.99) 04/20/25 05:47 Hct 45.9 % (37-53) 04/20/25 05:47 MCV 87.4 fl (82-101) 04/20/25 05:47 MCH 29.5 pg (27-33) 04/20/25 05:47 MCHC 33.8 g/dL (30-55) 04/20/25 05:47 RDW 13.2 % (12.1-15.1) 04/20/25 05:47 Plt Count 185 10^3/cmm (157-399) 04/20/25 05:47 MPV 11.3 fL (7.4-10.4) H 04/20/25 05:47 Neut % (Auto) 69.7 % 04/20/25 05:47 Lymph % (Auto) 20.0 % 04/20/25 05:47 Wood % (Auto) 8.1 % 04/20/25 05:47 Eos % (Auto) 0.9 % 04/20/25 05:47 Baso % (Auto) 0.7 % 04/20/25 05:47 Neut # (Auto) 7.27 10^3/uL (1.8-7.7) 04/20/25 05:47 Lymph # (Auto) 2.1 10^3/uL (0.8-4.8) 04/20/25 05:47 Wood # (Auto) 0.8 10^3/uL (0.2-0.9) 04/20/25 05:47 Eos # (Auto) 0.1 10^3/uL (0.0-0.8) 04/20/25 05:47 Baso # (Auto) 0.1 10^3/uL (0.0-0.1) 04/20/25 05:47 Nucleated RBC % (auto) 0 % 04/20/25 05:47 Nucleated RBCs # 0.0 /100WBC 04/20/25 05:47 D-Dimer 0.54 ug/mLFEU (0-0.59) 04/20/25 06:05 Sodium 136 mmol/L (136-145) 04/20/25 06:05 Potassium 4.0 mmol/L (3.5-5.1) 04/20/25 06:05 Chloride 98 mmol/L (98-107) 04/20/25 06:05 Carbon Dioxide 23 mmol/L (22-29) 04/20/25 06:05 Anion Gap 19.0 (5-19) 04/20/25 06:05 BUN 13 mg/dL (6-20) 04/20/25 06:05 Creatinine 0.7 mg/dL (0.7-1.2) 04/20/25 06:05 GFR Calculation 117.1 mL/min (90-130) 04/20/25 06:05 Glucose 138 mg/dL (65-115) H 04/20/25 06:05 Calculated Osmolality 284 mOsm/kg (285-295) L 04/20/25 06:05 Calcium 9.3 mg/dL (8.5-10.5) 04/20/25 06:05 Total Bilirubin 0.5 mg/dL (0.15-1.2) 04/20/25 06:05 AST 16 U/L (0-40) 04/20/25 06:05 ALT 20 U/L (0-41) 04/20/25 06:05 Alkaline Phosphatase 80 U/L (40-130) 04/20/25 06:05 Troponin T Baseline 14 ng/L (0-15) 04/20/25 06:05 Troponin T 120 Minute 12.51 ng/L (0-15) 04/20/25 08:20 Delta Troponin T -1.49 ABS# (0-10) L 04/20/25 08:20 Troponin T Hi Sens 6Hr 10.93 ng/L (0-15) 04/20/25 11:35 Troponin T Hi Sens 6Hr Delta -3.07 ng/L (0-12) L 04/20/25 11:35 NT-Pro-B Natriuret Pep 329 pg/mL (0-125) H 04/20/25 06:05 Total Protein 6.9 g/dL (6.6-8.7) 04/20/25 06:05 Albumin 4.6 g/dL (3.5-5.2) 04/20/25 06:05 Globulin 2.3 g/dL (1.3-4.6) 04/20/25 06:05 Other data: The EKG showed normal sinus rhythm with some nonspecific T wave changes in the high lateral leads. Poor R wave progression. Cardiac catheterization in September 2022 * INDICATION: Chest pain/ abnormal stress test. * Left Main has no significant disease. * Left Anterior Descending has patent prior stents. * Circumflex has no significant disease. Patent prior stent. * Mid Right Coronary Artery: Mild luminal irregularities. * First Obtuse Marginal Branch Segment: mild 40% stenosis, JAMARI: 3 flow. Has a patent prior stent. * Bypass grafts: RAMIREZ to LAD is atretic. * Coronary angiography shows right dominance. A&P Assessment and plan 1. Atherosclerotic heart disease of [place] coronary artery with other forms of angina pectoris: Patient is known to have atherosclerotic heart disease and coronary bypass surgery. Only the RAMIREZ to the LAD is patent but was found to be atretic based on the angiogram couple of years ago. Possibility of progression of disease in the other vessels is a consideration. Currently he seems to be stable. The EKG is unremarkable with no new changes. No evidence of myocardial injury so far 2. Primary hypertension: Currently normotensive. May continue on the current medications. 3. Mixed hyperlipidemia: Continue on the current medications. 4. Diabetes mellitus type 2 in obese: The blood glucose seems to be under control. May continue on the current medications. 5. Morbid obesity with BMI of 40.0-44.9, adult: Appropriate lifestyle modification is indicated. 6. Gastroesophageal reflux disease without esophagitis: May continue on the current management Plan: An echocardiogram would be helpful to evaluate LV function and rule out any other pathology Serial cardiac enzymes and EKGs will be obtained. Patient may be kept on the subcu Lovenox, aspirin, beta-rosario, statin and other symptomatic measures. If there is no evidence of myocardialinjury, a Myocardial perfusion imaging would be appropriate. Based on the results of the above tests and the patient's clinical progress, further recommendations will be made. Thank you for the opportunity to evaluate this patient and make these recommendations PDMP PDMP Reviewed: Not Reviewed Coding Level of Care Code 57041 Diagnoses Atherosclerotic heart disease of [place] coronary artery with other forms of angina pectoris I25.118 Primary hypertension I10 Hypertension type: primary hypertension Mixed hyperlipidemia E78.2 Hyperlipidemia type: mixed hyperlipidemia Diabetes mellitus type 2 in obese E11.9; E66.9 Morbid obesity with BMI of 40.0-44.9, adult E66.01; Z68.41 Gastroesophageal reflux disease without esophagitis K21.9 Esophagitis presence: without esophagitis
[2025-04-20 16:38] LABS: Partial Thromboplastin Time 81.7 SECONDS (23.9-36.7)
[2025-04-20 22:58] LABS: Partial Thromboplastin Time 56.2 SECONDS (23.9-36.7)
[2025-04-21] VITALS (19 sets, daily range): BP systolic 95–149; BP diastolic 43–98; PULSE 56–81; RESP 16–30; O2SAT 92–97
[2025-04-21] MEDS: heparin drip 25,000 UNIT/500 ML PREMIX 33 UNIT IV (03:52)
[2025-04-21 04:34] LABS: Hematocrit 45.1 % (37-53); Hemoglobin 15.10 g/dL (11.27-16.99); Mean Corpuscular HGB Conc 33.5 g/dL (30-55); Mean Corpuscular Hemoglobin 29.5 pg (27-33); Mean Corpuscular Volume 88.1 fl (82-101); Nucleated Red Blood Cells % 0 %; Platelet Count 167 10^3/cmm (157-399); Red Blood Count 5.12 10^6/uL (3.85-5.65); White Blood Count 7.97 10^3/uL (3.29-11.43)
[2025-04-21 04:42] LABS: Partial Thromboplastin Time 48.2 SECONDS (23.9-36.7)
[2025-04-21 04:49] LABS: Alanine Aminotransferase 22 U/L (0-41); Albumin Level 4.4 g/dL (3.5-5.2); Alkaline Phosphatase 75 U/L (40-130); Anion Gap 15.1 (5-19); Aspartate Amino Transferase 16 U/L (0-40); Blood Urea Nitrogen 13 mg/dL (6-20); Calcium 9.2 mg/dL (8.5-10.5); Carbon Dioxide 28 mmol/L (22-29); Chloride 99 mmol/L (98-107); Creatinine Clr Calc Pharmacy 139.6042; Globulin 2.5 g/dL (1.3-4.6); Glucose 121 mg/dL (65-115); Osmolality Calculated 287 mOsm/kg (285-295); Potassium 4.1 mmol/L (3.5-5.1); Sodium 138 mmol/L (136-145); Total Protein 6.9 g/dL (6.6-8.7)
--- NOTE | 2025-04-21 09:18 | PC.NURSE ---
Back from Nuc Med
--- NOTE | 2025-04-21 09:32 | PM.PN ---
Subjective Subjective: Patient is remaining stable with no recurrence of chest pain. Vitals are stable. Had a Myocardial perfusion imaging today. No evidence of ischemia Medications: Medication Review Details: Current Medications Acetaminophen (Acetaminophen 325 Mg Tablet) 650 mg PO Q6H PRN PRN Reason: Mild/Mod Pain Or Temp >/= 101 Aminophylline (Aminophylline 25 Mg/Ml Sdv 20 Ml) 25 mg IVP Q2M PRN PRN Reason: see dose instructions Stop: 04/22/25 06:23 Aspirin (Aspirin 81 Mg Ec Tablet) 81 mg PO QPM [facility] Last Admin: 04/20/25 17:21 Dose: 81 mg Atorvastatin Calcium (Atorvastatin 40 Mg Tablet) 40 mg PO BEDTIME DANIELA Last Admin: 04/20/25 20:59 Dose: 40 mg Buspirone HCl (Buspirone 5 Mg Tablet) 15 mg PO BID [facility] Last Admin: 04/21/25 05:39 Dose: 15 mg Clopidogrel Bisulfate (Clopidogrel 75 Mg Tablet) 75 mg PO QAM [facility] Last Admin: 04/21/25 05:40 Dose: 75 mg Furosemide (Furosemide 20 Mg Tablet) 20 mg PO BID [facility] Last Admin: 04/21/25 05:40 Dose: 20 mg Heparin Sodium (Porcine) (Heparin 5,000 Unit/Ml Inj 1 Ml) 0 unit IVP PRN PRN; Protocol PRN Reason: Heparin Weight Based Protocol -Subsequent Bolus Heparin Sodium/Sodium Chloride (Heparin Drip) 25,000 unit in 500 mls @ 0 mls/hr IV CONT DANIELA; Protocol Last Titration: 04/21/25 05:15 Dose: 14.02 unit/kg/hr, 36 mls/hr Metformin HCl (Metformin 500 Mg Tablet) 1,000 mg PO BID [facility] Last Admin: 04/21/25 05:39 Dose: 1,000 mg Metoprolol Tartrate (Metoprolol Tartrate 50 Mg Tablet) 25 mg PO BID [facility] Last Admin: 04/21/25 05:39 Dose: 25 mg Morphine Sulfate (Morphine 4 Mg/Ml Sdv 1 Ml) 2 mg IVP Q4H PRN PRN Reason: SEVERE PAIN Nitroglycerin (Nitroglycerin 1 Gm/Inch Oint Pkt) 0.5 inch TOPICAL Q6H DANIELA Last Admin: 04/21/25 07:27 Dose: Not Given Nitroglycerin (Nitroglycerin 0.4 Mg Sublingual Tablet) 0.4 mg SUBLINGUAL Q5M PRN PRN Reason: CHEST PAIN Stop: 04/22/25 06:23 Ondansetron HCl (Ondansetron 2 Mg/Ml Sdv 2 Ml) 4 mg IVP Q6H PRN PRN Reason: NAUSEA AND VOMITING Ondansetron HCl (Ondansetron 2 Mg/Ml Sdv 2 Ml) 4 mg IVP Q2M PRN PRN Reason: NAUSEA Pantoprazole Sodium (Pantoprazole Dr 40 Mg Tablet) 40 mg PO DAILY [facility] Last Admin: 04/21/25 05:40 Dose: 40 mg Regadenoson (Regadenoson 0.4 Mg/5 Ml Syringe) 0.4 mg IVP ONCE PRN PRN Reason: Lexiscan Stress Test Sertraline HCl (Sertraline 50 Mg Tablet) 100 mg PO DAILY [facility] Last Admin: 04/21/25 05:40 Dose: 100 mg Vitals/I&O/Wt Last Vital Signs Temp 97.6 F 04/20/25 05:47 Pulse 71 04/21/25 08:38 Resp 18 04/21/25 07:30 BP 124/71 04/21/25 08:38 Pulse Ox 95 04/21/25 07:30 O2 Del Method Room Air 04/21/25 07:30 04/20/25 04/21/25 04/21/25 22:59 06:59 14:59 Intake Total 1315.733 / 1555.733 423.25 / 1978.983 0 / 0 Output Total 600 / 1100 500 / 1600 Balance 715.733 / 455.733 -76.75 / 378.983 0 / 0 Weight last 48 hrs Weight 280 lb Weight 280 lb Weight 283 lb Physical Exam Narrative: GENERAL: The patient is alert and oriented times three. Not in any acute distress. Obese HEENT: No significant pallor, icterus or lymphadenopathy.Oral cavity: There are no mucous membrane lesions. NECK: Trachea appears to be central. No masses noted. No JVD or thyromegaly appreciated. RESPIRATORY: Chest is symmetrical. No intercostals muscle retraction or any accessory muscle activation. There is no chest wall tenderness. Breath sounds are heard bilaterally. No rales or rhonchi heard. No evidence of any consolidation. BREASTS: Deferred. HEART: The heart sounds are normal. No S3 or S4. No significant murmurs. No pericardial rub ABDOMEN: No vessel pulsations or distention. No tenderness. No organomegaly appreciated. Bowel sounds are normally heard. : Deferred. RECTAL: Deferred. LYMPHATIC: No lymphadenopathy noted in the neck. EXTREMITIES: No edema or cyanosis. No clubbing. MUSCULOSKELETAL: No acute joint deformities or swelling SKIN: There are no significant rashes or ecchymosis NEUROPSYCHIATRIC: The patient is alert and oriented x3. Appears to be in a good mood. No tremors or rigidity noted. Data 04/21/25 04:11 04/21/25 04:11 Other Labs: Laboratory Last Values WBC 7.97 10^3/uL (3.29-11.43) 04/21/25 04:11 RBC 5.12 10^6/uL (3.85-5.65) 04/21/25 04:11 Hgb 15.10 g/dL (11.27-16.99) 04/21/25 04:11 Hct 45.1 % (37-53) 04/21/25 04:11 MCV 88.1 fl (82-101) 04/21/25 04:11 MCH 29.5 pg (27-33) 04/21/25 04:11 MCHC 33.5 g/dL (30-55) 04/21/25 04:11 RDW 13.2 % (12.1-15.1) 04/21/25 04:11 Plt Count 167 10^3/cmm (157-399) 04/21/25 04:11 MPV 11.5 fL (7.4-10.4) H 04/21/25 04:11 Neut % (Auto) 62.5 % 04/21/25 04:11 Lymph % (Auto) 25.7 % 04/21/25 04:11 Cecil % (Auto) 9.3 % 04/21/25 04:11 Eos % (Auto) 1.0 % 04/21/25 04:11 Baso % (Auto) 0.6 % 04/21/25 04:11 Neut # (Auto) 4.98 10^3/uL (1.8-7.7) 04/21/25 04:11 Lymph # (Auto) 2.1 10^3/uL (0.8-4.8) 04/21/25 04:11 Cecil # (Auto) 0.7 10^3/uL (0.2-0.9) 04/21/25 04:11 Eos # (Auto) 0.1 10^3/uL (0.0-0.8) 04/21/25 04:11 Baso # (Auto) 0.1 10^3/uL (0.0-0.1) 04/21/25 04:11 Nucleated RBC % (auto) 0 % 04/21/25 04:11 Nucleated RBCs # 0.0 /100WBC 04/21/25 04:11 APTT 48.2 SECONDS (23.9-36.7) H 04/21/25 04:11 D-Dimer 0.54 ug/mLFEU (0-0.59) 04/20/25 06:05 Sodium 138 mmol/L (136-145) 04/21/25 04:11 Potassium 4.1 mmol/L (3.5-5.1) 04/21/25 04:11 Chloride 99 mmol/L (98-107) 04/21/25 04:11 Carbon Dioxide 28 mmol/L (22-29) 04/21/25 04:11 Anion Gap 15.1 (5-19) 04/21/25 04:11 BUN 13 mg/dL (6-20) 04/21/25 04:11 Creatinine 0.8 mg/dL (0.7-1.2) 04/21/25 04:11 GFR Calculation 100.4 mL/min (90-130) 04/21/25 04:11 Glucose 121 mg/dL (65-115) H 04/21/25 04:11 Calculated Osmolality 287 mOsm/kg (285-295) 04/21/25 04:11 Calcium 9.2 mg/dL (8.5-10.5) 04/21/25 04:11 Total Bilirubin 0.4 mg/dL (0.15-1.2) 04/21/25 04:11 AST 16 U/L (0-40) 04/21/25 04:11 ALT 22 U/L (0-41) 04/21/25 04:11 Alkaline Phosphatase 75 U/L (40-130) 04/21/25 04:11 Troponin T Baseline 14 ng/L (0-15) 04/20/25 06:05 Troponin T 120 Minute 12.51 ng/L (0-15) 04/20/25 08:20 Delta Troponin T -1.49 ABS# (0-10) L 04/20/25 08:20 Troponin T Hi Sens 6Hr 10.93 ng/L (0-15) 04/20/25 11:35 Troponin T Hi Sens 6Hr Delta -3.07 ng/L (0-12) L 04/20/25 11:35 NT-Pro-B Natriuret Pep 329 pg/mL (0-125) H 04/20/25 06:05 Total Protein 6.9 g/dL (6.6-8.7) 04/21/25 04:11 Albumin 4.4 g/dL (3.5-5.2) 04/21/25 04:11 Globulin 2.5 g/dL (1.3-4.6) 04/21/25 04:11 Other data: Myocardial perfusion imaging from today 1. Myocardial perfusion imaging revealing large area of moderate to severely decreased persistent tracer uptake involving the anterior, anterolateral, inferolateral, inferior and apical regions suggesting extensive myocardial scarring involving the distribution of all the 3 coronary arteries. 2. Diminished LV ejection fraction of 48%. 3. Segmental wall motion analysis revealing diffuse hypokinesia of the left ventricle, more so of the apex 4. Mildly dilated LV cavity No significant coronary ischemia, based on the above findings A&P Assessment and plan 1. Atherosclerotic heart disease of [place] coronary artery with other forms of angina pectoris: Patient is known to have atherosclerotic heart disease and coronary bypass surgery. Only the RAMIREZ to the LAD is patent but was found to be atretic based on the angiogram couple of years ago. Possibility of progression of disease in the other vessels is a consideration. Currently he seems to be stable. The EKG is unremarkable with no new changes. No evidence of myocardial injury so far Myocardial perfusion imaging was done today. Was found to have no evidence of ischemia. 2. Primary hypertension: Currently normotensive. May continue on the current medications. 3. Mixed hyperlipidemia: Continue on the current medications. 4. Diabetes mellitus type 2 in obese: The blood glucose seems to be under control. May continue on the current medications. 5. Morbid obesity with BMI of 40.0-44.9, adult: Appropriate lifestyle modification is indicated. 6. Gastroesophageal reflux disease without esophagitis: May continue on the current management Plan: The Myocardial perfusion imaging results as mentioned above. Discussed with the patient in detail the implication of the test findings. Since he has no recurrence of chest pain and is remaining stable, may not require any further cardiac investigations at this point. If he continues to remain stable, may be discharged home from a cardiac standpoint. Follow[facility] appointment [facility] in 2 weeks to be seen by the nurse practitioner. Appoint with Dr. Cespedes as scheduled PDMP PDMP Reviewed: Not Reviewed Attestations Medical Necessity Statement*: Disposition as per the primary Coding Level of Care Code 10484 Diagnoses Atherosclerotic heart disease of [place] coronary artery with other forms of angina pectoris I25.118 Primary hypertension I10 Hypertension type: primary hypertension Mixed hyperlipidemia E78.2 Hyperlipidemia type: mixed hyperlipidemia Diabetes mellitus type 2 in obese E11.9; E66.9 Morbid obesity with BMI of 40.0-44.9, adult E66.01; Z68.41 Gastroesophageal reflux disease without esophagitis K21.9 Esophagitis presence: without esophagitis
--- NOTE | 2025-04-21 13:59 | NMCV_ITS ---
NM yong perf SPECT r/s* [id number] MckeonEarl Age: 55 Gender: M : 1970 Exam Date: 04/21/2025 07:25 Ordering Phys: Cristal Thomas MD Technologist: ISRAEL John Exam Location: [facility] Indications: cp STRESS TEST [facility] IMAGE PROTOCOL Rest/Stress 1 Lexiscan Day Radiopharmaceutical Dose (mCi) Administration Site Administered by Rest: Tc-99m 10.8 IV ISRAEL John Sestamibi Stress:Tc-99m 33 IV ISRAEL Ward Sestamibi Rest: 21-Apr-2025 60 Discovery 630 Stress: 21-Apr-2025 30 Discovery 630 0.4mg Lexiscan. Images obtained in supine and prone position. SPECT RESULTS Technical Quality: Good Raw Data Analysis: Normal Image Corrections: No attenuation or motion correction applied Summed Stress Score: 30 Summed Rest Score: 32 Summed Difference Score: 0 PERFUSION FINDINGS Large area of moderate to severely decreased tracer uptake involving the inferior inferolateral anterolateral anterior and apical segments was noted with no significant reversibility. FUNCTIONAL RESULTS (calculated via Gated SPECT) Stress Image LV EF (%): 48 Stress EDV (mL):143 TID: 0.92 Stress ESV (mL):74 FUNCTIONAL FINDINGS: Segmental wall motion analysis revealing diffuse hypokinesia of the left ventricle, most of the apex Mildly dilated LV cavity IMPRESSIONS 1. Myocardial perfusion imaging revealing large area of moderate to severely decreased persistent tracer uptake involving the anterior, anterolateral, inferolateral, inferior and apical regions suggesting extensive myocardial scarring involving the distribution of all the 3 coronary arteries. 2. Diminished LV ejection fraction of 48%. 3. Segmental wall motion analysis revealing diffuse hypokinesia of the left ventricle, more so of the apex 4. Mildly dilated LV cavity No significant coronary ischemia, based on the above findings Dr Any Cooper MD FACC (Electronically Signed) Final Date: 21 April 2025 11:04 S
--- NOTE | 2025-04-21 14:46 | P.DS_ITS ---
Discharge Providers Date of Admission: 04/20/25 09:26 Date of Discharge: April 21, 2025 Attending Provider at Admission: Cristal Thomas MD Attending Provider at Discharge: Homero Jacobsen MD Primary Care Provider: Prem Garcia MD Diagnoses at Discharge Discharge Diagnosis 1. Atherosclerotic heart disease of [place] coronary artery with other forms of angina pectoris: 2. Primary hypertension: 3. Mixed hyperlipidemia: 4. Diabetes mellitus type 2 in obese: 5. Morbid obesity with BMI of 40.0-44.9, adult: 6. Gastroesophageal reflux disease without esophagitis: Reason for Visit Reason for Visit: CP pain in l arm dizzy Brief History: Patient presented with chest pain, thought to be due to ACS. He was admitted in observation, put on telemetry. Troponin levels were trended, which were insignificant. Or other associated symptoms with treatment empirically. Hospital Course Hospital Course Cardiology saw the patient, and did a stress test. He also had an uneventful myocardial perfusion test, which revealed no significant findings. The commercial specialist therefore recommended continued treatment with dual antiplatelet therapy, and follow-up with a primary commercial specialist, Dr. Cespedes, recommended. Physical Exam Narrative: General: Awake and alert patient. No obvious distress. CVS: Normal heart rate and rhythm. Chest: Clinically clear. All other physical findings essentially within normal limits. Discharge Data Studies Completed and Pending Completed Studies During Hospitalization Category Date Time Status Cardiac Stress Test MIBI [Sestamibi Stress Test Request Exams 04/20/25 13:59 Draft ] Routine XR chest 1V portable [id number] Stat Exams 04/20/25 05:37 Completed NM yong perf SPECT r/s* [id number] Routine Nuc Med 04/21/25 13:59 Completed CV. echo complete* [id number] Routine Ultrasound 04/20/25 13:56 Completed Radiology Impressions Chest X-Ray 04/20/25 05:37 IMPRESSION: Cardiomegaly without evidence of failure. Laboratory Results WBC 7.97 10^3/uL (3.29-11.43) 04/21/25 04:11 RBC 5.12 10^6/uL (3.85-5.65) 04/21/25 04:11 Hgb 15.10 g/dL (11.27-16.99) 04/21/25 04:11 Hct 45.1 % (37-53) 04/21/25 04:11 MCV 88.1 fl (82-101) 04/21/25 04:11 MCH 29.5 pg (27-33) 04/21/25 04:11 MCHC 33.5 g/dL (30-55) 04/21/25 04:11 RDW 13.2 % (12.1-15.1) 04/21/25 04:11 Plt Count 167 10^3/cmm (157-399) 04/21/25 04:11 MPV 11.5 fL (7.4-10.4) H 04/21/25 04:11 Neut % (Auto) 62.5 % 04/21/25 04:11 Lymph % (Auto) 25.7 % 04/21/25 04:11 [place] % (Auto) 9.3 % 04/21/25 04:11 Eos % (Auto) 1.0 % 04/21/25 04:11 Baso % (Auto) 0.6 % 04/21/25 04:11 Neut # (Auto) 4.98 10^3/uL (1.8-7.7) 04/21/25 04:11 Lymph # (Auto) 2.1 10^3/uL (0.8-4.8) 04/21/25 04:11 [place] # (Auto) 0.7 10^3/uL (0.2-0.9) 04/21/25 04:11 Eos # (Auto) 0.1 10^3/uL (0.0-0.8) 04/21/25 04:11 Baso # (Auto) 0.1 10^3/uL (0.0-0.1) 04/21/25 04:11 Nucleated RBC % (auto) 0 % 04/21/25 04:11 Nucleated RBCs # 0.0 /100WBC 04/21/25 04:11 APTT 48.2 SECONDS (23.9-36.7) H 04/21/25 04:11 D-Dimer 0.54 ug/mLFEU (0-0.59) 04/20/25 06:05 Sodium 138 mmol/L (136-145) 04/21/25 04:11 Potassium 4.1 mmol/L (3.5-5.1) 04/21/25 04:11 Chloride 99 mmol/L (98-107) 04/21/25 04:11 Carbon Dioxide 28 mmol/L (22-29) 04/21/25 04:11 Anion Gap 15.1 (5-19) 04/21/25 04:11 BUN 13 mg/dL (6-20) 04/21/25 04:11 Creatinine 0.8 mg/dL (0.7-1.2) 04/21/25 04:11 GFR Calculation 100.4 mL/min (90-130) 04/21/25 04:11 Glucose 121 mg/dL (65-115) H 04/21/25 04:11 Calculated Osmolality 287 mOsm/kg (285-295) 04/21/25 04:11 Calcium 9.2 mg/dL (8.5-10.5) 04/21/25 04:11 Total Bilirubin 0.4 mg/dL (0.15-1.2) 04/21/25 04:11 AST 16 U/L (0-40) 04/21/25 04:11 ALT 22 U/L (0-41) 04/21/25 04:11 Alkaline Phosphatase 75 U/L (40-130) 04/21/25 04:11 Troponin T Baseline 14 ng/L (0-15) 04/20/25 06:05 Troponin T 120 Minute 12.51 ng/L (0-15) 04/20/25 08:20 Delta Troponin T -1.49 ABS# (0-10) L 04/20/25 08:20 Troponin T Hi Sens 6Hr 10.93 ng/L (0-15) 04/20/25 11:35 Troponin T Hi Sens 6Hr Delta -3.07 ng/L (0-12) L 04/20/25 11:35 NT-Pro-B Natriuret Pep 329 pg/mL (0-125) H 04/20/25 06:05 Total Protein 6.9 g/dL (6.6-8.7) 04/21/25 04:11 Albumin 4.4 g/dL (3.5-5.2) 04/21/25 04:11 Globulin 2.5 g/dL (1.3-4.6) 04/21/25 04:11 Vitals Last Vital Signs Temp 97.6 F 04/20/25 05:47 Pulse 74 04/21/25 12:00 Resp 17 04/21/25 12:00 BP 149/93 04/21/25 12:00 Pulse Ox 95 04/21/25 12:00 O2 Del Method Room Air 04/21/25 12:00 Discharge Plan Discharge Patient Disposition: Home Condition: Stable Prescriptions: Continued (DME) diabetic shoes with 3 inserts See Rx Instructions .Route .MEDSUPPLY Qty: 1 0RF Rx Instructions: As directed to the shoe basim fluticasone propionate [Flonase Allergy Relief] 50 mcg/actuation spray,suspension 2 spray intranasal DAILY Qty: 16 0RF Rx Instructions: administer into each nostril metoprolol tartrate 50 mg tablet 50 mg PO BID Qty: 180 3RF nitroglycerin 0.4 mg tablet, sublingual 0.4 mg sublingual Q5M PRN (Reason: Chest Pain) Qty: 25 3RF Rx Instructions: do not exceed 3 doses per episode (DME) medial diver helper brace, left knee See Rx Instructions .Route .MEDSUPPLY Qty: 1 0RF Rx Instructions: As directed buspirone 15 mg tablet 15 mg PO BID Qty: 180 1RF clopidogrel 75 mg tablet 75 mg PO QAM Qty: 90 3RF lisinopril 20 mg tablet 20 mg PO BEDTIME Qty: 90 1RF omeprazole 40 mg capsule,delayed release(DR/EC) 40 mg PO DAILY Qty: 90 1RF furosemide 20 mg tablet 20 mg PO BID Qty: 180 3RF sertraline 50 mg tablet 100 mg PO DAILY Qty: 90 1RF metformin 1,000 mg tablet 1,000 mg PO BID Qty: 180 3RF atorvastatin 40 mg tablet See Rx Instructions .ROUTE .COMPLEX Qty: 90 0RF Dose Instruction: Take 1 tablet by mouth in the evening Rx Instructions: Take 1 tablet by mouth in the evening aspirin 81 mg tablet,delayed release (DR/EC) 81 mg PO QPM potassium gluconate 595 mg (99 mg) tablet 1,785 mg PO QAM doxycycline hyclate 100 mg capsule 100 mg PO BID [place] Analyst OK for DC: Cardiology Discharge Order = DC NOW: Discharge Order (Routine); Ordered 04/21/25 Ordered By: Homero Jacobsen Referrals: Albino Cespedes M.D [Physician, Cardiology] - 05/20/25 8:45 am Prem Garcia MD [Primary Care Provider, Family Practice] - 05/01/25 9:30 am Discharge Diet: Advance as tolerated and Low Cholesterol Discharge Activity: Resume usual activity Patient Instructions: Angina (DC), Low Fat Diet (DC), Heart Healthy Diet (ED), Cholesterol and Your Health (GEN), Opioid Safety, Patient Portal & [facility] Instructions Stand Alone Forms: Work/School Release Discharge Attestations Time Spent in Discharge Care*: less than 30 min Quality Metrics Clinical Quality Measures [ No reported AMI, CVA or VTE this stay] Coding Level of Care Code Acute Code for Chg Fwd Diagnoses Atherosclerotic heart disease of [place] coronary artery with other forms of angina pectoris I25.118 Primary hypertension I10 Hypertension type: primary hypertension Mixed hyperlipidemia E78.2 Hyperlipidemia type: mixed hyperlipidemia Diabetes mellitus type 2 in obese E11.69; E66.9 Morbid obesity with BMI of 40.0-44.9, adult E66.01; Z68.41 Gastroesophageal reflux disease without esophagitis K21.9 Esophagitis presence: without esophagitis
--- NOTE | 2025-04-21 15:52 | PC.NURSE ---
Discharge instructions given to patient and significant other, no prescriptions given, IVs removed. Patient has no questions. Patient ambulates to front entrance, accompanied by this nurse. Significant other driving.
== END 2025-04-21 15:49 | disposition home or self-care (01) ==
LOC: ER 08:10 → ICU 09:58
PROVIDERS: Emergency Medicine; Internal Medicine Cardiovascular Disease; Student in an Organized Health Care Education/Training Program; Admitting Provider Student in an Organized Health Care Education/Training Program; Emergency Provider Family Medicine; PCP Family Medicine; Visit Provider Family Medicine
DX: I25.118 Atherosclerotic heart disease of native coronary artery with other forms of angina pectoris (principal); I10 Essential (primary) hypertension; E78.2 Mixed hyperlipidemia; E11.69 Type 2 diabetes mellitus with other specified complication; E66.01 Morbid (severe) obesity due to excess calories; Z68.41 Body mass index [BMI] 40.0-44.9, adult; K21.9 Gastro-esophageal reflux disease without esophagitis; Z79.82 Long term (current) use of aspirin; Z79.02 Long term (current) use of antithrombotics/antiplatelets; Z79.84 Long term (current) use of oral hypoglycemic drugs; F41.9 Anxiety disorder, unspecified; Z95.5 Presence of coronary angioplasty implant and graft; F32.9 Major depressive disorder, single episode, unspecified; Z87.891 Personal history of nicotine dependence
CPT/HCPCS: 36415; 71045; 78452; 80053; 83880; 84484; 85025; 85378; 85730; 93005; 93017; 93306; 96365; 96366; 96375; 99285; A9500; G0378; J1644; J7030; J9999